=== PATIENT | female | born 1980 | race Caucasian/White ===

== ENCOUNTER 2019-12-18 08:02 | Outpatient (REF) | payer OTHER, SELFPAY ==
[2019-12-18 11:03] LABS: HIV AB/AG Nonreactive (Nonreactive); HIV Num 1 0.06 S/CO (0.00-0.99); ~HepC Num1 0.76 S/CO (0.00-0.79); ~Hepatitis C Antibody Nonreactive (Nonreactive)
[2019-12-18 11:05] LABS: Syphilis Screen Nonreactive (Nonreactive)
[2019-12-18 11:11] LABS: HBsAGNum1 0.29 S/CO (0.00-0.99); Hepatitis B Surface Antigen Negative (Negative)
[2019-12-18 11:58] LABS: CT PCR NOT DETECTED (Not Detect.); NG PCR DETECTED (Not Detect.)
[2019-12-19 12:58] LABS: BV Int Neg Control Negative (Negative); BV Int Pos Control Positive (Positive)
== END 2019-12-18 08:03 | disposition home or self-care (01) ==
LOC: HO.LAB 08:02
PROVIDERS: Visit Provider Advanced Practice Midwife
DX: Z01.411 Encounter for gynecological examination (general) (routine) with abnormal findings (principal); D25.1 Intramural leiomyoma of uterus; N89.8 Other specified noninflammatory disorders of vagina; D24.1 Benign neoplasm of right breast; Z20.2 Contact with and (suspected) exposure to infections with a predominantly sexual mode of transmission
CPT/HCPCS: 86780; 86803; 87340; 87389; 87480; 87491; 87510; 87591; 87660

== ENCOUNTER → 2019-12-21 15:22 | Outpatient (BNVA) | payer OTHER, SELFPAY | PROVIDERS: Visit Provider Advanced Practice Midwife | DX: A54.9 Gonococcal infection, unspecified (principal) | CPT/HCPCS: 99211 ==

== ENCOUNTER 2021-12-07 15:24 | Outpatient (REF) | payer OTHER, SELFPAY ==
[2021-12-07 18:03] LABS: CT PCR NOT DETECTED (Not Detect.)
[2021-12-07 18:04] LABS: NG PCR NOT DETECTED (Not Detect.)
[2021-12-08 06:55] LABS: Syphilis Screen Nonreactive (Nonreactive)
[2021-12-08 07:39] LABS: HBc Num1 0.17 S/CO (0.00-0.79); HIV AB/AG Nonreactive (Nonreactive); HIV Num 1 0.11 S/CO (0.00-0.99); Hepatitis B Core Antibody Nonreactive (Nonreactive); ~HepC Num1 0.41 S/CO (0.00-0.79); ~Hepatitis C Antibody Nonreactive (Nonreactive)
[2021-12-08 11:11] LABS: BV Int Neg Control Negative (Negative); BV Int Pos Control Positive (Positive)
[2021-12-12 20:41] LABS: HPV mRNA E6/E7 rflx Not Detected (Not Detected)
== END 2021-12-07 15:25 | disposition home or self-care (01) ==
LOC: HO.LNP 15:24
PROVIDERS: Visit Provider Advanced Practice Midwife
DX: Z01.419 Encounter for gynecological examination (general) (routine) without abnormal findings (principal); N89.8 Other specified noninflammatory disorders of vagina; Z20.2 Contact with and (suspected) exposure to infections with a predominantly sexual mode of transmission
CPT/HCPCS: 86704; 86780; 86803; 87389; 87480; 87491; 87510; 87591; 87624; 87660; 88142

== ENCOUNTER 2022-11-01 10:14 | Outpatient (REF) | payer MEDICAID, SELFPAY ==
--- NOTE | ~2022-11-01 | MM_ITS ---
EXAMINATION: MM SCREENING DIGITAL BREAST TOMOSYNTHESIS, BILATERAL CLINICAL INFORMATION: Screening. Asymptomatic. COMPARISON: Mammography: This study is compared with prior exams dating back to 2006. TECHNIQUE: Digital breast tomosynthesis is performed in both the craniocaudal and mediolateral oblique views along with computer-aided detection (CAD). Synthesized 2D images are generated from the tomosynthesis. FINDINGS: The breasts are heterogeneously dense, which may obscure small masses (ACR BI-RADS breast composition Category c). There are no significant masses, abnormal calcifications, or other abnormalities. 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 It contains a tissue marker and few, unchanged, benign calcifications.. MM/MM tomosynthesis screening BI IMPRESSION: No mammographic evidence of malignancy. ASSESSMENT: BI-RADS BI-RADS 2 - Benign Findings RECOMMENDATION: Routine annual mammography screening. 1 year F/U This examination should not preclude the clinical evaluation of a suspicious palpable abnormality. This patient's information was entered into a reminder system with a target due date for their next mammogram.
--- NOTE | ~2022-11-01 | US_ITS ---
EXAMINATION: US PELVIS CLINICAL INFORMATION: Bilateral ovarian cysts. LMP 10/19/2022. COMPARISON: Pelvic ultrasound 06/10/2017 TECHNIQUE: Ultrasound of the pelvis is performed using both transabdominal and transvaginal transducers along with Doppler. Transvaginal imaging is performed due to inadequate visualization transabdominally. FINDINGS: Uterus: The uterus is anteverted. Uterine echotexture is heterogeneous. The uterus measures 12.2 x 4.9 7.1 cm. Multilayered endometrium measuring up to 1.4 cm. Right fundal fibroid measures 2.6 x 2.60 2.0 cm. Right fundal fibroid measures 1.7 x 1.1 x 1.5 cm. Left fundal fibroid measures 2.7 x 2.7 x 3.3 cm. Lower uterine segment fibroid measures 2.0 x 1.5 x 1.6 cm. Adnexa: Both ovaries are visualized. The right ovary measures 3.6 x 2.2 x 2.5 cm for a volume of 10.8 mL. Right ovarian simple cyst measures 2.1 x 1.8 x 2.1 cm. The left ovary measures 5.7 x 3.8 x 5.3 cm for a volume of 60.0 mL. Septated left ovarian cyst measures 4.9 x 3.5 x 5.2 cm. Loculated fluid in the cul-de-sac measures 4.2 x 2.1 x 4.1 cm and is essentially unchanged. US/US pelvic and transvaginal IMPRESSION: Septated left ovarian cyst measuring 4.9 x 3.5 x 5.2 cm. Findings are overwhelmingly likely to represent a benign functional cyst. No follow-up imaging recommended. Uterine fibroids. Thickened endometrium. Advise correlation with patient's menstrual history.
== END 2022-11-01 10:15 | disposition home or self-care (01) ==
LOC: HO.MAMMO 10:14
PROVIDERS: PCP Pediatrics; Visit Provider Pediatrics
DX: Z12.31 Encounter for screening mammogram for malignant neoplasm of breast (principal); N83.201 Unspecified ovarian cyst, right side; N83.202 Unspecified ovarian cyst, left side
CPT/HCPCS: 76830; 76856; 77063; 77067

== ENCOUNTER → 2022-11-01 10:15 | Outpatient (BNV) | payer MEDICAID, SELFPAY | PROVIDERS: PCP Pediatrics; Visit Provider Radiology Diagnostic Radiology | DX: Z12.31 Encounter for screening mammogram for malignant neoplasm of breast (principal) | CPT/HCPCS: 77063; 77067 ==

== ENCOUNTER 2022-12-07 12:52 | Outpatient (REF) | payer MEDICAID, SELFPAY ==
[2022-12-08 16:34] LABS: C. trachomatis RNA TMA NOT DETECTED (NOT DETECTED); N. gonorrhoeae RNA TMA NOT DETECTED (NOT DETECTED)
== END 2022-12-07 12:53 | disposition home or self-care (01) ==
LOC: HO.CHCLNP 12:52
PROVIDERS: Visit Provider Internal Medicine
DX: R10.2 Pelvic and perineal pain (principal)
CPT/HCPCS: 36415; 87491; 87591

== ENCOUNTER → 2022-12-13 14:39 | Outpatient (BNVA) | payer OTHER, SELFPAY | PROVIDERS: Visit Provider Advanced Practice Midwife ==

== ENCOUNTER 2023-01-23 10:10 | Outpatient (AMB) | payer MEDICAID, SELFPAY ==
--- NOTE | 2023-01-23 10:16 | A.OFFVIS_ITS ---
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 She was previously seen at [facility] and was diagnosed with ovarian cyst and offered surgery at that time. She denies any pain today. She admits that she has painful menses and sometimes some jabbing pain during her cycle. She is also interested in a future . She is not taking vitamins. She reports regular monthly cycles lasting for 5-6 days heavy for 2 days. She reports a history of anemia. Records of her last CBC and TSH are not available. She reports taking some iron supplements. [facility] Medical History Breast lump Pelvic cyst History of benign breast biopsy Family History Mother Diabetes HTN (hypertension) Brain cancer Social History Alcohol intake: current Alcohol intake frequency: holidays/special occasions only Patient Tobacco Use Status: Current everyday Tobacco user Cigarettes Per Day: 10 Years Smoked: 20 Female Reproductive History Menstrual Age of Menarche: 13 Duration of menses: 6-7 days Date of last menstrual period: 01/19/23 control method: none Total pregnancies: 4 Full term: 4 Number of Living Children: 4 Physical Exam Vital Signs: Last Vital Signs BP 98/62 01/23/23 10:17 BMI result Body Mass Index 23.6 Results Reviewed Results Reviewed: [facility] [address] [place] [address] [place] [address] Ultrasound Report Signed Patient: Dolores Fung MR#: [id number] : 1980 Acct:[id number] Age/Sex: 42 / F ADM Date: 11/01/22 Loc: [facility] Attending Dr: Breanne Fermin MD Ordering Physician: Breanne Fermin MD Date of Service: 11/01/22 Procedure(s): US pelvic and transvaginal Accession Number(s): [id number] cc: Breanne Fermin MD~ EXAMINATION: US PELVIS CLINICAL INFORMATION: Bilateral ovarian cysts. LMP 10/19/2022. COMPARISON: Pelvic ultrasound 06/10/2017 TECHNIQUE: Ultrasound of the pelvis is performed using both transabdominal and transvaginal transducers along with Doppler. Transvaginal imaging is performed due to inadequate visualization transabdominally. FINDINGS: Uterus: The uterus is anteverted. Uterine echotexture is heterogeneous. The uterus measures 12.2 x 4.9 7.1 cm. Multilayered endometrium measuring up to 1.4 cm. Right fundal fibroid measures 2.6 x 2.60 2.0 cm. Right fundal fibroid measures 1.7 x 1.1 x 1.5 cm. Left fundal fibroid measures 2.7 x 2.7 x 3.3 cm. Lower uterine segment fibroid measures 2.0 x 1.5 x 1.6 cm. Adnexa: Both ovaries are visualized. The right ovary measures 3.6 x 2.2 x 2.5 cm for a volume of 10.8 mL. Right ovarian simple cyst measures 2.1 x 1.8 x 2.1 cm. The left ovary measures 5.7 x 3.8 x 5.3 cm for a volume of 60.0 mL. Septated left ovarian cyst measures 4.9 x 3.5 x 5.2 cm. Loculated fluid in the cul-de-sac measures 4.2 x 2.1 x 4.1 cm and is essentially unchanged. US/US pelvic and transvaginal IMPRESSION: Septated left ovarian cyst measuring 4.9 x 3.5 x 5.2 cm. Findings are overwhelmingly likely to represent a benign functional cyst. No follow-up imaging recommended. Uterine fibroids. Thickened endometrium. Advise correlation with patient's menstrual history. Assessment & Plan Assessment & Plan (1) Fibroid: Code(s): D21.9 - Benign neoplasm of connective and other soft tissue, unspecified (2) Ovarian cyst, bilateral: Code(s): N83.201 - Unspecified ovarian cyst, right side; N83.202 - Unspecified ovarian cyst, left side Plan: Consult regarding bilateral ovarian cyst. Most are benign in occur throughout the reproductive years and mostly resolved on their own. Discussed medical management with it in including contraception with limitations for smoking would be progesterone only products at this time, she declines control. Left cyst larger wrote reviewed warnings including: torsion, ovarian cyst rupture. Cyst appears simple no need for follow-up unless she is becoming more uncomfortable if there is any significant pain she should report to the emergency room as mentioned for those concerns. Recheck the cyst at the time of her exam for fibroids in 6 months, or sooner if there is any changes with her including pain. (3) Smoker: Code(s): F17.200 - Nicotine dependence, unspecified, uncomplicated Plan: Strongly recommended to stop smoking prior to . To start a vitamin. Release records for recent blood work. May need to reduce iron supplements to daily with additional vitamin depending on level of anemia. Offered her information for other physician general practice services within her community since she travels out of her area a bit to come here she is happy to continue care here. Monitor for periods if missed menses do a home test the test is positive to follow-up here for care. Release records for lab work, and all note from [facility] and PCP. All of her questions and concerns were addressed to the best of my ability and shared decision making. She is agreeable to the plan of care. Plan Counseled re: Leiomyoma: common pelvic neoplasm. Differential diagnosis-may include leiomyosarcoma which is a rare uterine sarcoma 3-7/100,000, difficult to distinguish from fibroids on ultrasound from uterine sarcoma's. Unlikely any single test will have a highly positive predictive value. Hysterectomy is not recommended for sole purpose of excluding malignant neoplasm. Report any AUB. Pelvic pressure, bloating, or pain. Expectant management follow up in 6 months, then yearly for stability. Orders: Orders US pelvic and transvaginal 6 Months D21.9 - Benign neoplasm of connective and other soft tissue, unspecified Medications: New PNV,calcium 62-plzo-ilcvi acid 27 mg iron- 1 mg ( Vitamins Plus Low Iron) 1 tab PO DAILY 90 tabs 4RF Coding Level of Care Code Est Pt Level 3 (35124) Diagnoses Fibroid D21.9 Ovarian cyst, bilateral N83.201; N83.202 Smoker F17.200
[2023-01-23 10:17] VITALS: BP 98/62; BMI 23.6
== END 2023-01-23 10:59 | disposition home or self-care (01) ==
LOC: HO.HWS 10:10
PROVIDERS: PCP Pediatrics; Visit Provider Advanced Practice Midwife
DX: D21.9 Benign neoplasm of connective and other soft tissue, unspecified (principal); N83.201 Unspecified ovarian cyst, right side; N83.202 Unspecified ovarian cyst, left side; F17.200 Nicotine dependence, unspecified, uncomplicated
CPT/HCPCS: 99213

== ENCOUNTER → 2023-01-23 10:10 | Outpatient (BNVA) | payer MEDICAID, SELFPAY | PROVIDERS: PCP Pediatrics; Visit Provider Advanced Practice Midwife | DX: D21.9 Benign neoplasm of connective and other soft tissue, unspecified (principal); N83.201 Unspecified ovarian cyst, right side; N83.202 Unspecified ovarian cyst, left side; F17.210 Nicotine dependence, cigarettes, uncomplicated; Z71.6 Tobacco abuse counseling | CPT/HCPCS: 99212 ==

== ENCOUNTER 2023-08-12 15:30 | Outpatient (REF) | payer MEDICAID, SELFPAY ==
--- NOTE | ~2023-08-12 | US_ITS ---
EXAMINATION: US PELVIS CLINICAL INFORMATION: Leiomyoma Benign neoplasm of connective and other soft tissue, unspecified LMP 08/03/2023 COMPARISON: Ultrasound 11/01/2022, MRI pelvis 06/21/2017 TECHNIQUE: Ultrasound of the pelvis is performed using both transabdominal and transvaginal transducers along with Doppler. Transvaginal imaging is performed due to inadequate visualization transabdominally. FINDINGS: Uterus: The uterus is anteverted and measures 10.2 x 6.1 x 8.0 cm. There are multiple uterine fibroids includin.4 x 1.8 x 2.5 cm left lower uterine segment, previously measured 2.0 x 1.5 x 1.6 cm 3.0 x 2.5 x 2.6 cm right lower uterine segments previously measured 2.6 x 2.6 x 2.0 cm. 3.5 x 3.4 x 3.7 cm partly exophytic fibroid previously measured 2.7 x 2.8 x 3.3 cm. New 3.2 x 2.9 x 2.8 cm fundal fibroid New 3.1 x 2.5 x 2.8 cm fundal fibroid. Other smaller fibroids are seen. The endometrial thickness is 1.5 cm. Adnexa: Both ovaries are visualized. There is normal color flow to the adnexa. There is no ovarian torsion. Right ovary measures 3.1 x 2.4 x 1.6 cm. Volume 5.9 mL. Left ovary measures 1.9 x 1.1 x 1.3 cm. Volume 14 mL. 11.7 x 2.0 x 4.1 cm cystic structure is again seen in the cul-de-sac. 11.7 x 2.0 x 4.1 cm complex, tubular, cystic area in the left adnexa may represent a complex hydrosalpinx. US/US pelvic and transvaginal IMPRESSION: 1. Multiple uterine fibroids. 2. Normal ovaries. 3. 11.7 cm cystic structure in the cul-de-sac is again seen. 4. 11.7 cm complex, tubular, cystic area in the left adnexa may represent a complex hydrosalpinx. MRI scan could be obtained for further evaluation.
== END 2023-08-12 15:31 | disposition home or self-care (01) ==
LOC: HO.US 15:30
PROVIDERS: PCP Pediatrics; Visit Provider Advanced Practice Midwife
DX: D21.9 Benign neoplasm of connective and other soft tissue, unspecified (principal)
CPT/HCPCS: 76830; 76856

== ENCOUNTER 2023-08-29 14:57 | Outpatient (REF) | payer MEDICAID, SELFPAY ==
[2023-08-29 17:36] LABS: MANUAL DIFF FLAG NO
[2023-08-29 17:49] LABS: Basophils Absolute Auto 0.1 X10*3/uL (0.0-0.2); Basophils Percent Auto 1.2 % (0-2); Eosinophils Absolute Auto 0.4 X10*3/uL (0.0-0.4); Eosinophils Percent Auto 4.4 % (0-4); Hematocrit 36.3 % (37.0-47.0); Hemoglobin 11.2 g/dl (12.0-16.0); Imm Gran Abs Auto 0.02 X10*3/uL (0.00-0.03); Imm Gran Pct Auto 0.2 % (0.0-0.4); Lymphocytes Absolute Auto 2.9 X10*3/uL (1.2-4.9); Lymphocytes Percent Auto 35.7 % (20-40); Mean Corpuscular HGB Conc 30.9 g/dl (31.0-35.0); Mean Corpuscular Hemoglobin 24.8 pg (27.0-33.0); Mean Corpuscular Volume 80.3 fL (80.0-98.0); Mean Platelet Volume 10.2 fL (9.4-12.3); Monocytes Absolute Auto 0.8 X10*3/uL (0.1-1.2); Monocytes Percent Auto 10.1 % (2-11); Neutrophils Absolute Auto 3.9 x10*3/uL (2.0-8.3); Neutrophils Percent Auto 48.4 % (45-73); Platelet Count 346 X10*3/uL (160-400); Red Blood Count 4.52 X10*6/uL (4.20-5.50); Red Cell Distribution Width 16.6 % (11.0-16.0)
[2023-08-29 18:08] LABS: TSH reflex Free T4 1.09 uIU/mL (0.32-4.0); Vitamin D 25-OH Total 34.2 ng/mL (>30)
[2023-08-30 03:29] LABS: CT PCR NOT DETECTED (Not Detect.); NG PCR NOT DETECTED (Not Detect.)
[2023-08-30 08:10] LABS: HBS Num1 176.84 mIU/mL (0-7.99); HIV AB/AG Nonreactive (Nonreactive); HIV Num 1 0.05 S/CO (0.00-0.99); Hepatitis B Core Antibody Nonreactive (Nonreactive); ~HepC Num1 0.56 S/CO (0.00-0.79); ~Hepatitis B Surface Antibody REACTIVE (Nonreactive); ~Hepatitis C Antibody Nonreactive (Nonreactive)
[2023-08-30 10:47] LABS: Bacterial Vaginosis PCR POSITIVE (Negative); Candida Group PCR NOT DETECTED (Not Detect); Candida glab krusei PCR NOT DETECTED (Not Detect); Trichomonas vaginalis PCR NOT DETECTED (Not Detect)
== END 2023-08-29 14:58 | disposition home or self-care (01) ==
LOC: HO.CHCLDS 14:57
PROVIDERS: Visit Provider Pediatrics
DX: Z00.00 Encounter for general adult medical examination without abnormal findings (principal); Z71.3 Dietary counseling and surveillance; Z71.82 Exercise counseling; E11.9 Type 2 diabetes mellitus without complications; N83.201 Unspecified ovarian cyst, right side; N83.202 Unspecified ovarian cyst, left side; Z86.2 Personal history of diseases of the blood and blood-forming organs and certain disorders involving the immune mechanism
CPT/HCPCS: 0352U; 36415; 82306; 84443; 85025; 86704; 86706; 86803; 87389; 87491; 87591

== ENCOUNTER 2024-01-24 14:36 | Outpatient (REF) | payer MEDICAID, SELFPAY | END 2024-01-24 14:37 | disposition home or self-care (01) | LOC: HO.CHCLNP 14:36 | PROVIDERS: Visit Provider Internal Medicine | DX: R10.9 Unspecified abdominal pain (principal) | CPT/HCPCS: 0352U; 87086; 87491; 87591 ==

== ENCOUNTER 2024-01-24 16:28 | Outpatient (REF) | payer MEDICAID, SELFPAY ==
[2024-01-25 13:06] LABS: Bacterial Vaginosis PCR POSITIVE (Negative); Candida Group PCR DETECTED (Not Detect); Candida glab krusei PCR DETECTED (Not Detect); Trichomonas vaginalis PCR NOT DETECTED (Not Detect)
[2024-01-25 13:40] LABS: CT PCR NOT DETECTED (Not Detect.); NG PCR NOT DETECTED (Not Detect.)
== END 2024-01-24 16:29 | disposition home or self-care (01) ==
LOC: HO.CHCLNP 16:28
PROVIDERS: Visit Provider Internal Medicine
DX: N76.0 Acute vaginitis (principal)
CPT/HCPCS: 0352U; 87491; 87591

== ENCOUNTER 2024-06-17 11:07 | Outpatient (REF) | payer MEDICAID, SELFPAY ==
--- OUTSIDE RECORDS SUMMARY | 2024-06-17 15:47 | XMS_ITS | Encounter Summary ---
Author Organization [employer] Address [address] [facility] 7 [place] [address] Care Team Providers Care Local Company Flatbed Truck Driver Name Role Phone Breanne Fermin MD Primary Care Provider Reason for Visit * Reason Onset Date Comments Referral 01/23/2023 Encounter Details Date Type Department Care Team ([facility] Contact Info) Description 01/23/2023 Telephone [facility] MED & PEDS [address] [place] [address] Breanne Fermin MD [address] [place] [address] Referral Social History Tobacco Use Types Packs/Day [...] 03/20/2023 3:52 PM EST Referral sent to [address] [place] [address] per pt request * Telephone Encounter - Farrah Gomez - 01/23/2023 11:27 AM EST Tc from pt requesting a different location for obstetrics/Gynecology referral. 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 documented in this encounter Plan of Treatment Upcoming Encounters Date Type Department Care Team ([facility] Contact Info) Description 06/30/2024 11:15 AM EDT Office Visit [facility] MED & PEDS [address] [place] [address] Breanne Fermin MD [address] [place] [address] documented as of this encounter Visit Diagnoses Not on filedocumented in this encounter Additional Health Concerns Assessment Noted Time PHQ-9 Depression Total Score: 0 04/19/19 10:37 AM EST documented as of this encounter Care Teams Local Company Flatbed Truck Driver Relationship Specialty Start Date End Date Breanne Fermin MD [address] [place] [address] PCP - General Internal Medicine 05/02/22 documented as of this encounter
--- OUTSIDE RECORDS SUMMARY | 2024-06-17 15:47 | XMS_ITS | Clinical Summary ---
Author Organization [employer] Address [address] [place] [address] 7t [place] [address] Care Team Providers Care Ent Consultant Name Role Phone Breanne Fermin MD Primary Care Provider [phone] Allergies No known active allergies Medications Blood [...] Department Care Team Description 06/16/2024 Orders Only [facility] MED & PEDS [address] [place], [place] [phone] ProviderYvette MD 06/16/2024 Telephone [facility] MEDICINE [address] [place] [address] Breanne Fermin MD Appointment Request 05/01/2024 Population Health Risk Score [facility] () Department [address] [place] [phone] Provider, Population Health Generic 04/27/2024 Telephone [facility] MED & PEDS [address] [place] [address] Breanne Fermin MD recall 04/13/2024 1:00 PM EST Office Visit [facility] MED & PEDS [address] [place] [address] Verna Cano MD Right hand weakness (Primary Dx); Multinodular thyroid 04/13/2024 Travel 04/13/2024 Telephone [facility] MEDICINE [address] [place], [place] [phone] Breanne Fermin MD Nurse Triage 04/10/2024 Patient Outreach [facility] MED & PEDS [address] [place], [place] [phone] Breanne Fermin MD Care Coordination (Outreach) 03/31/2024 Refill [facility] MED[facility]INE [address] [place] [address] Breanne Fermin MD Type 2 diabetes mellitus without complication, without long-term current use of insulin ([facility]); Thrombus; H/O iron deficiency anemia from Last [...] Description 06/30/2024 11:15 AM EDT Office Visit [facility] CH[facility] MED & PEDS [address] [place] [address] Breanne Fermin MD 505 [place] [address] Health Maintenance Due Date Last Done Comments [...] ORDERABLES Final Re sult Performing Organization Address [facility] Co de Phone Number [facility] [address] [place] [phone] * HIV-1/2 Antigen and Antibodies, Fourth Generation, with Reflexes (08/29/2023 3:00 PM EDT) [facility] HIV AB/AG Nonreactive Nonreactive [facility] Comment:HIV-1 p24 Ag and/or HIV-1/HIV-2 Ab not detected.A test result that is nonreactive does not exclude thepossibility of exposure to or infection with HIV-1 and/orHIV-2. Nonreactive results in this assay for individualswith prior exposure to HIV-1 and/or HIV-2 may be due toantigen and antibody levels that are below the limit ofdetection of this assay.The [employer] HIV Ag/Ab Combo assay result andsupplemental assay results should be interpreted inconjunction with the patient's clinical presentation,history and other laboratory results. If the results areinconsistent with clinical evidence, additional testing issuggested to confirm the result. Blood Venous blood specimen / Unknown 08/29/2023 3:00 PM EDT 08/29/2023 5:32 PM EDT Breanne Fermin MD LAB BLOOD ORDERABLES Final Re sult Performing Organization Address [facility]/ZIP Co de Phone Number [facility] [address] [place] [phone] * (ABNORMAL) POCT HGB A1C (08/29/2023 2:42 PM EDT) [facility] Hemoglobin A1C 6.8(A) 4.0 - 6.0 % QC Media Lot # [id number] Lot# Expiration Date Blood 08/29/2023 2:42 PM EDT us Breanne Fermin MD POINT OF CARE TEST ENTER/EDIT ORDERABLES Final Result * BI Mammogram Screening Tomosynthesis Bilateral (11/01/2022 10:40 AM EDT) Anatomical Region Laterality Modality Breast Bilateral Mammography 11/01/2022 10:4 0 AM EDT Narrative 11/18/2022 8:00 AM EDT ? [facility] ? [address] ?[place] [address] ? Mammography Report ? Signed ? Patient: Kenton,Dolores L ?MR#: [id number] ?? [id number] ? : 1980 ?Acct:[id number] ? Age/Sex: 42 / F ?ADM Date: 11/01/22 ? Loc: HO.MAMMO ? Attending Dr: Breanne Fermin MD ? Ordering Physician: Kamille Watkins CNFabrice ?Results: 2Beni ?? gn Findings ? Date of Service: 11/01/22 ?Follow Up: 1 Year From Orig ?? inal Mammogram ? Procedure(s): MM tomosynthesis screening BI ?? Accession Number(s): [id number] ? cc: Breanne Fermin MD; Kamille Watkins [...] 0756 ? DD/ 1040 ? TD/TT: ? Photovoltaic Testing Technician: ? Procedure Note Lolita Palacios - 11/18/2022 [facility] [address] [place] [address] Dr. [place], [place] [address] Mammography Report Signed Patient: Dolores Fung R#: [id number] : 1980Acct:[id number] Age/Sex: 42 / FADM Date: 11/01/22 Loc: HO.MAMMO Attending Dr: Breanne Fermin MD Ordering Physician: Kamille Watkins CNMResults: 2Beni gn Findings Date of Service: 11/01/22Follow Up: 1 Year From Orig ina Mammogram Procedure(s): MM tomosynthesis screening BI Accession Number(s): [id number] cc: Breanne Fermin MD; Kamille Watkins CNM [...] in OV> 11/18/22 0756 DD/ 1040 TD/TT: Photovoltaic Testing Technician: [facility] External Provider IMG BI PROCEDURES Final Result * (ABNORMAL) Lipid Panel, Standard (04/18/2022 10:48 AM EST) Cholesterol, Total 155 <200 mg/dL [facility] HDL Cholesterol 29(L) > OR = 50 mg/dL [facility] Triglycerides 281(H) <150 mg/dL [facility] Comment: If a non-fasting specimen was collected, consider repeat triglyceride testing on a fasting specimen if clinically indicated. Devin et al. J. of Clin. Lipidol. 2015;9:129-169. LDL Cholesterol 89 mg/dL (calc) [facility] Comment: Reference range: <100 Desirable range <100 mg/dL for primary prevention; ?? <70 mg/dL for patients with CHD or diabetic patients with > or = 2 CHD risk factors. LDL-C is now calculated using the Estiven calculation, which is a validated novel method providing better accuracy than the Friedewald equation in the estimation of LDL-C. Bright SS et al. CATRINA. 2013;310(19): 7968-3570 (http://education.VideoCare/faq/PZV750) Chol/HDLC Ratio 5.3(H) <5.0 (calc) [facility] Non-HDL Cholesterol 126 <130 mg/dL (calc) [facility] Comment: For patients with diabetes plus 1 major ASCVD risk factor, treating to a non-HDL-C goal of <100 mg/dL (LDL-C of <70 mg/dL) is considered a therapeutic option. Blood Venous blood specimen / Unknown 04/18/2022 10:48 AM EST 04/18/2022 10:49 AM EST Narrative [facility] - 04/19/2022 7:54 AM EST FASTING:YES FASTING: YES Breanne Fermin MD LAB BLOOD ORDERABLES Final Re sult [facility] [address] [facility], [place] [address] [facility] [address] [facility], ([address]) [place] [address] * LIQUID-BASED PAP TEST (11/27/2021 12:00 AM EDT) Swab Historical Provider LAB CYTOLOGY ORDERABLES F inal Result from Last 3 Months or Most Recently Relevant to Health Maintenance Insurance C3 Care Teams Ent Consultant Relationship Specialty Start Date End Date Breanne Fermin MD [address] [place] [phone] PCP - General Internal Medicine 05/02/22
--- OUTSIDE RECORDS SUMMARY | 2024-06-17 15:47 | XMS_ITS | Encounter Summary ---
Author Organization [employer] Address [address] [facility] 7 [place] [address] Care Team Providers Care Us Marketing Director Name Role Phone Breanne Fermin MD Primary Care Provider [phone] Reason for Visit * Reason Onset Date Comments Appointment Request 06/16/2024 Encounter Details Date Type Department Care Team ([facility] Contact Info) Description 06/16/2024 Telephone [facility] MEDICINE [address] [place] [address] Breanne Fermin MD [address] [place] [phone] Appointment Request Social History Tobacco Use Types [...] that its the same. Contact pt at [phone] documented in this encounter Plan of Treatment Upcoming Encounters Date Type Department Care Team (Late st Contact Info) Description 06/30/2024 11:15 AM EDT Office Visit [facility] MED & PEDS [address] [place] [address] Breanne Fermin MD [address] [place] [address] documented as of this encounter Visit Diagnoses Not on filedocumented in this encounter Additional Health Concerns Assessment Noted Time PHQ-9 Depression Total Score: 0 08/29/19 24 2:28 PM EDT documented as of this encounter Care Teams Us Marketing Director Relationship Specialty Start Date End Date Breanne Fermin MD [address] [place] [address] PCP - General Internal Medicine 05/02/22 documented as of this encounter
--- OUTSIDE RECORDS SUMMARY | 2024-06-17 15:47 | XMS_ITS | Encounter Summary ---
Author Organization [employer] Address [address] [facility] 7t [place] [address] Care Team Providers Care Head Of Acquisitions Name Role Phone Breanne Fermin MD Primary Care Provider [phone] Encounter Details Date Type Department Care Team ([facility] Contact Info) Description 04/19/2022 Abstract [facility] CH[facility] MED & PEDS [address] [place], [place] [phone] Ana Ashford MD [address] [place] [address] Social History Tobacco Use Types Packs/Day Years [...] Description 06/30/2024 11:15 AM EDT Office Visit [facility] MED & PEDS [address] [place] [address] Breanne Fermin MD [address] [place] [address] documented as of this encounter Visit Diagnoses Not on filedocumented in this encounter Additional Health Concerns Assessment Noted Time PHQ-9 Depression Total Score: 0 04/19/19 10:37 AM EST documented as of this encounter Care Teams Head Of Acquisitions Relationship Specialty Start Date End Date Breanne Fermin MD [address] [place] [address] PCP - General Internal Medicine 05/02/22 documented as of this encounter
--- OUTSIDE RECORDS SUMMARY | 2024-06-17 15:47 | XMS_ITS | Encounter Summary ---
Author Organization [employer] Address [address] [facility] [address] 7t [place] [address] Care Team Providers Care Nematologist Name Role Phone Breanne Fermin MD Primary Care Provider [phone] Encounter Details Date Type Department Care Team ([facility] st Contact Info) Description 06/16/2024 Orders Only [facility] MED & PEDS [address] [place] [address] ProviderYvette MD Social History Tobacco Use Types [...] Upcoming Encounters Date Type Department Care Team ([facility] st Contact Info) Description 06/30/2024 11:15 AM EDT Office Visit [facility] MED & PEDS [address] [place], [place] [phone] Breanne Fermin MD 505 [place] [address] documented as of this encounter Procedures Procedure [...] documented as of this encounter Care Teams Nematologist Relationship Specialty Start Date End Date Breanne Femrin MD [address] [place] [address] PCP - General Internal Medicine 05/02/22 documented as of this encounter
--- OUTSIDE RECORDS SUMMARY | 2024-06-17 15:47 | XMS_ITS | Clinical Summary ---
Author Organization [facility] Address [address] [place] [address] Phone Care Team Providers Care Cnc Machinist Name Role Phone Breanne Fermin MD Primary Care Provider [phone] Allergies No known active allergies Encounters Date Type Department Care Team Description 04/09/2024 10:01 AM EST - 04/09/2024 1:00 PM EST Emergency [facility] Emergency [address] [place] [address] Castillo Chan, Arm weakness (Primary [...] GEMUSE QTc 475 ms GEMUSE P Wave [place] 24 degrees GEMUSE R [place] 15 degrees GEMUSE T [place] 30 degrees GEMUSE ECG Interpretation Normal sinus [...] the office of CASTILLO CHAN in the [employer] Actionable Findings ??system on 04/09/2024 11:57 AM, Message ID [id number]. -------- FINAL REPORT -------- Dictated By: David Redman Dictated Date: 04/09/2024 11:56 ET Assigned Physician: David Redman Reviewed and Electronically Signed By: David Redman Signed Date: 04/09/2024 11:57 ET Workstation ID: [id number] Transcribed By: Self Edit Transcribed Date: 04/09/2024 [...] for the office ofCASTILLO CHAN in the [employer] system on04/09/2024 11:57 AM, Message ID [id number]. -------- FINAL REPORT -------- Dictated By: David Redman Dictated Date: 04/09/2024 11:56 ET Assigned Physician: David Redman Reviewed and Electronically Signed By: David Redman Signed Date: 04/09/2024 11:57 ET Workstation ID: [id number] Transcribed By: Self Edit Transcribed Date: 04/09/2024 [...] Signed Date: 04/09/2024 11:56 ET Workstation ID: [id number] Transcribed By: Self Edit Transcribed Date: 04/09/2024 11:51 ET Narrative 04/09/2024 11:56 AM EST PROCEDURE: CT angiogram of the neck and [place] and delayed postcontrast CT images of the brain. HISTORY: Neuro deficit, acute, stroke suspected. COMPARISON: None. TECHNIQUE: CT angiogram of the neck and [place] with multiplanar reformats. ??Delayed postcontrast [...] above the PICA. The basilar artery and extra gang supervisor are widely patent. ??The anterior and middle [...] PROCEDURE: CT angiogram of the neck and [place] and delayedpostcontrast CT images of the brain. HISTORY: Neuro deficit, acute, stroke suspected. COMPARISON: None. TECHNIQUE: CT angiogram of the neck and [place] with multiplanarreformats. Delayed postcontrast CT [...] above the PICA. The basilar artery and extra gang supervisor are widely patent. The anterior and middlecerebral [...] Signed Date: 04/09/2024 11:56 ET Workstation ID: [id number] Transcribed By: Self Edit Transcribed Date: 04/09/2024 11:51 ET Castillo Chan DO IMG CT PROCEDURES Final Result * (ABNORMAL) CBC auto differential (04/09/2024 10:33 AM EST) WBC 8.2 4.8 - 10.8 K/[facility] LAB HEMETOLOGY METHOD 04/09/2024 10:53 AM EST [facility] RBC 4.40 3.80 - 4.80 M/[facility] LAB HEMETOLOGY METHOD 04/09/2024 10:53 AM [facility] Hemoglobin 10.2(L) 11.5 - 16.0 g/dL LAB HEMETOLOGY METHOD 04/09/2024 10:53 AM [facility] Hematocrit 34.5(L) 35.0 - 47.0 % LAB HEMETOLOGY METHOD 04/09/2024 10:53 AM [facility] MCV 77.9(L) 79.0 - 98.0 FL LAB HEMETOLOGY METHOD 04/09/2024 10:53 AM [facility] MCH 23.0(L) 27.0 - 32.0 pcg LAB HEMETOLOGY METHOD 04/09/2024 10:53 AM [facility] MCHC 29.6(L) 32.0 - 37.0 g/dL LAB HEMETOLOGY METHOD 04/09/2024 10:53 AM [facility] RDW 18.6(H) 11.0 - 15.0 % LAB HEMETOLOGY METHOD 04/09/2024 10:53 AM [facility] Platelets 539(H) 130 - 400 K/mcL LAB HEMETOLOGY METHOD 04/09/2024 10:53 AM [facility] MPV 9.2 7.0 - 11.0 FL LAB HEMETOLOGY METHOD 04/09/2024 10:53 AM [facility] NRBC 0.0 <1.0 % LAB HEMETOLOGY METHOD 04/09/2024 10:53 AM [facility] NRBC Absolute 0.00 <0.10 K/mcL LAB HEMETOLOGY METHOD 04/09/2024 10:53 AM [facility] Neutrophils Relative 56.3 % LAB HEMETOLOGY METHOD 04/09/2024 10:53 AM [facility] Lymphocytes Relative 34.7 % LAB HEMETOLOGY METHOD 04/09/2024 10:53 AM [facility] Monocytes Relative 6.3 % LAB HEMETOLOGY METHOD 04/09/2024 10:53 AM [facility] Eosinophils Relative 1.3 % LAB HEMETOLOGY METHOD 04/09/2024 10:53 AM [facility] Basophils Relative 1.2 % LAB HEMETOLOGY METHOD 04/09/2024 10:53 AM [facility] Immature Granulocytes Relative 0.2 % LAB HEMETOLOGY METHOD 04/09/2024 10:53 AM [facility] Neutrophils Absolute 4.61 1.50 - 7.00 K/mcL LAB HEMETOLOGY METHOD 04/09/2024 10:53 AM [facility] Lymphocytes Absolute 2.85 1.00 - 5.00 K/mcL LAB HEMETOLOGY METHOD 04/09/2024 10:53 AM [facility] Monocytes Absolute 0.52 0.20 - 1.00 K/mcL LAB HEMETOLOGY METHOD 04/09/2024 10:53 AM [facility] Eosinophils Absolute 0.11 0.00 - 0.50 K/mcL LAB HEMETOLOGY METHOD 04/09/2024 10:53 AM [facility] Basophils Absolute 0.10 0.00 - 0.20 K/mcL LAB HEMETOLOGY METHOD 04/09/2024 10:53 AM [facility] Immature Granulocytes Absolute 0.02 0.00 - 0.03 K/mcL LAB HEMETOLOGY METHOD 04/09/2024 10:53 AM [facility] Blood Venous blood specimen / Unknown Venipuncture / Unknown 04/09/2024 10:33 AM EST 04/09/2024 10:43 AM EST us Castillo Chan DO LAB BLOOD ORDERABLES Final Res ult [facility] [address] [place] [address], [place] [phone] * Activated partial thromboplastin time (04/09/2024 10:33 AM EST) [facility] aPTT 30.7 24.1 - 39.3 sec LAB COAGULATION METHOD 04/09/2024 11:03 AM EST [facility] Blood Venous blood specimen / Unknown Venipuncture / Unknown 04/09/2024 10:33 AM EST 04/09/2024 10:43 AM EST us Castillo Chan DO LAB BLOOD ORDERABLES Final Res ult [facility] [address] [place] [address], [place] [phone] * Prothrombin time with INR (04/09/2024 10:33 AM EST) [facility] Protime 11.0 10.6 - 13.9 sec LAB COAGULATION METHOD 04/09/2024 11:03 AM EST [facility] INR 0.9 LAB COAGULATION METHOD 04/09/2024 11:03 AM EST [facility] Blood Venous blood specimen / Unknown Venipuncture / Unknown 04/09/2024 10:33 AM EST 04/09/2024 10:43 AM EST Castillo Chan DO LAB BLOOD ORDERABLES Final Res ult [facility] [address] [place] [address], [place] [phone] * (ABNORMAL) Basic metabolic panel (04/09/2024 10:33 AM EST) [facility] Sodium 139 133 - 145 mmol/L LAB CHEMISTRY METHOD 04/09/2024 11:36 AM EST [facility] Potassium 3.7 3.5 - 5.5 mmol/L LAB CHEMISTRY METHOD 04/09/2024 11:36 AM [facility] Chloride 107 96 - 110 mmol/L LAB CHEMISTRY METHOD 04/09/2024 11:36 AM [facility] CO2 25 21 - 32 mmol/L LAB CHEMISTRY METHOD 04/09/2024 11:36 AM [facility] Anion Gap 7 3 - 11 LAB CHEMISTRY METHOD 04/09/2024 11:36 AM [facility] Glucose 102(H) 70 - 100 mg/dL LAB CHEMISTRY METHOD 04/09/2024 11:36 AM [facility] BUN 5 5 - 25 mg/dL LAB CHEMISTRY METHOD 04/09/2024 11:36 AM [facility] Creatinine 0.52 0.50 - 1.10 mg/dL LAB CHEMISTRY METHOD 04/09/2024 11:36 AM [facility] eGFR 118 >=60 mL/min/1. 73m2 LAB CHEMISTRY METHOD 04/09/2024 11:36 AM [facility] Comment:Calculation based on the??Chronic Kidney Disease Epidemiology Collaboration (CKD-EPI) equation refit??without adjustment for race. BUN/Creatinine Ratio 9.6 LAB CHEMISTRY METHOD 04/09/2024 11:36 AM [facility] Calcium 9.6 8.5 - 10.5 mg/dL LAB CHEMISTRY METHOD 04/09/2024 11:36 AM [facility] Blood Venous blood specimen / Unknown Venipuncture / Unknown 04/09/2024 10:33 AM EST 04/09/2024 10:43 AM EST us Castillo Chan DO LAB BLOOD ORDERABLES Final Res ult [facility] [address] [place] [address], [place] [phone] from Last 3 Months Insurance Care Teams Cnc Machinist Relationship Specialty Start Date End Date Breanne Fermin MD [address] [place] [address] PCP - General Internal Medicine 06/16/24
--- OUTSIDE RECORDS SUMMARY | 2024-06-17 15:47 | XMS_ITS | Encounter Summary ---
Author Organization [employer] Address [address] [facility] 7t [place] [address] Care Team Providers Care Barrel Ribs Solderer Name Role Phone Breanne Fermin MD Primary Care Provider Encounter Details Date Type Department Care Team ([facility] Contact Info) Description 01/26/2024 Orders Only [facility] MED & PEDS [address] [place], [place] [phone] Bill Albarran MD [address] [place] [address] Bacterial vaginosis (Primary Dx) Social History Tobacco [...] [facility]EDS [address] [place] [address] Breanne Fermin MD [address] [place] [address] documented as of this encounter Visit Diagnoses Diagnosis Bacterial vaginosis- Primary Unspecified vaginitis and vulvovaginitis documented in this encounter Additional Health Concerns Assessment Noted Time PHQ-9 Depression Total Score: 0 08/29/19 24 2:28 PM EDT documented as of this encounter Care Teams Barrel Ribs Solderer Relationship Specialty Start Date End Date Breanne Fermin MD [address] [place] [address] PCP - General Internal Medicine 05/02/22 documented as of this encounter
[2024-06-17 20:07] LABS: Bacterial Vaginosis PCR POSITIVE (Negative); Candida Group PCR DETECTED (Not Detect); Candida glab krusei PCR NOT DETECTED (Not Detect); Trichomonas vaginalis PCR NOT DETECTED (Not Detect)
[2024-06-17 20:47] LABS: CT PCR DETECTED (Not Detect.); NG PCR NOT DETECTED (Not Detect.)
== END 2024-06-17 11:08 | disposition home or self-care (01) ==
LOC: HO.LNP 11:07
PROVIDERS: PCP Pediatrics; Visit Provider Advanced Practice Midwife
DX: B37.31 Acute candidiasis of vulva and vagina (principal); E11.9 Type 2 diabetes mellitus without complications; Z20.2 Contact with and (suspected) exposure to infections with a predominantly sexual mode of transmission; Z79.84 Long term (current) use of oral hypoglycemic drugs
CPT/HCPCS: 81515; 87491; 87591; 99212

== ENCOUNTER 2024-06-17 11:07 | Outpatient (AMB) | payer MEDICAID, SELFPAY ==
--- NOTE | 2024-06-17 11:09 | A.OFFVIS_ITS ---
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 She says she is diabetic for about the last year she says her blood sugars are under good control she takes metformin 1000 mg and she sees a doctor named Dr. Mcleod in [place]. She says she has an appointment with her in 8 days, She said she thinks she has some other appointment follow-up on something else to somebody but she does not who or where. [facility] Medical History Breast lump Pelvic cyst History of benign breast biopsy Family History Mother Diabetes HTN (hypertension) Brain cancer Social History Alcohol intake: current Alcohol intake frequency: holidays/special occasions only Patient Tobacco Use Status: Current everyday Tobacco user Cigarettes Per Day: 10 Years Smoked: 20 Female Reproductive History Menstrual Age of Menarche: 13 Duration of menses: 6-7 days Date of last menstrual period: 06/04/24 control method: none Total pregnancies: 4 Full term: 4 Date of last pap smear: 12/07/21 (negative ) Date of Mammogram: 11/01/22 (bi rad 2) Physical Exam Vital Signs: Last Vital Signs BP 110/70 06/17/24 11:14 BMI result Body Mass Index 23.6 Other: Labia minora are slightly dry/pink consistent with very mild yeast. External Female Exam: normal external appearance and normal appearance of the urethra Speculum Exam - Vagina: normal appearance of the vagina and normal vaginal discharge Speculum Exam - Cervix: normal appearance of the cervix and Cervical os closed Assessment & Plan Assessment & Plan (1) Potential exposure to STD: Code(s): Z20.2 - Contact with and (suspected) exposure to infections with a predominantly sexual mode of transmission Category: Medical (2) Diabetes: Comment: Since she has been diagnosed for about a year and is well-controlled on metformin 1000 mg per her PCC in [place]. Says her blood sugars have not been higher than 120 postprandial. Code(s): E11.9 - Type 2 diabetes mellitus without complications Category: Medical (3) Yeast infection of the vagina: Comment: Mild vaginal burning times 3-4 days. Testing done appearance consistent with very mild yeast which would be consistent with her diabetes, we will treat with her choice - fluconazole. Code(s): B37.31 - Acute candidiasis of vulva and vagina Category: Medical Plan Testing done for gonorrhea chlamydia trichomoniasis bacterial vaginosis and Kristel. Patient has appearance a lines with extremely mild yeast which could be consistent with her well-controlled diabetes per her report. Congratulated on her self-care and keeping an eye on her diabetes she has an appointment in 8 days with a primary care provider to review things as well. I am sending a prescription for fluconazole 150 mg that she can take 1 tablet now and repeat the 2nd dose if she is still symptomatic in 3 days. Otherwise she can say that dose for future episode. Reviewed the frequent occurrence of yeast infections in the setting of diabetes and elevated blood sugars but she reports her blood sugars as being very well controlled and never higher than the 120 that it was this morning postprandial. I congratulated her on her self-care. I reminded her to make her annual exam appointment with whoever she sees. Medications: New fluconazole may repeat second dose 72 hrs after first dose if symptoms persist 150 mg PO Q3D 2 doses 2 tabs 0RF Coding Level of Care Code Est Pt Level 3 (36072) Diagnoses Potential exposure to STD Z20.2 Diabetes E11.9 Yeast infection of the vagina B37.31
[2024-06-17 11:14] VITALS: BP 110/70; BMI 23.6
--- OUTSIDE RECORDS SUMMARY | 2024-06-17 12:42 | XMS_ITS | Clinical Summary ---
Author Organization [facility] Address [address] [place] [address] Phone Care Team Providers Care Greige Mender Name Role Phone Breanne Fermin MD Primary Care Provider [phone] Allergies No known active allergies Encounters Date Type Department Care Team Description 04/09/2024 10:01 AM EST - 04/09/2024 1:00 PM EST Emergency [facility] Emergency [address] [place] [address] Castillo Chan, Arm weakness (Primary Dx) Discharge Disposition: Left Against Medical Advice from Last 3 Months Surgical History Surgery Date Site/Laterality Comments OTHER SURGICAL HISTORY PROCEDURE: DENIES PREVIOUS SURGERY Medical History Medical History Date Comments Patient denies medical problems DX:Patient denies medical problems Social History Tobacco Use Types Packs/Day Years Used Date Smoking Tobacco: Never Assessed Comments Unknown Sex and Gender Information Value Date Recorded Sex Assigned at Female 04/09/2024 10:59 AM EST Legal Sex Female 9:32 AM EST Gender Identity Female 04/09/2024 10:59 AM EST Sexual Orientation Straight 04/09/2024 10 :59 AM EST Obstetrics History Last Filed Vital Signs Vital Sign Reading Time Taken Comments Blood Pressure 131/85 04/09/2024 9:51 AM EST Pulse 87 04/09/2024 9:51 AM EST Temperature 36.6 ??C (97.9 ??F) 04/09/2024 9:51 AM ES T Respiratory Rate 18 04/09/2024 9:51 AM EST Oxygen Saturation 97% 04/09/2024 9:51 AM EST Inhaled Oxygen Concentration - - Weight 59 kg (130 lb) 04/09/2024 9:51 AM EST Height 165.1 cm (5' 5 ) 04/09/2024 9:51 AM EST Body Mass Index 21.63 04/09/2024 9:51 AM EST Plan of Treatment Health Maintenance Due Date Last Done Comments Breast Cancer Screening 1980 Diabetes: Annual Foot Exam 02/07/1990 Diabetes: Annual Retina Eye Exam 02/07/1990 DTaP,Tdap,and Td Vaccines (1 - Tdap) 02/07/1999 Hepatitis B Vaccines (1 of 3 - 19+ 3-dose series) 02/07/1999 Cervical Cancer Screening: P ap Smear 02/07/2001 Social Influencers of Health Screening 01/15/2022 COVID-19 Vaccine ( - 2023-2 5 season) 2023 Diabetes: Annual Urine Albumin-Creatinine Ratio (uACR) 04/09/2024 Diabetes: Blood Sugar Contro l Test (HGBA1C) 04/09/2024 08/29/2023 Depression Screening 08/28/2024 08/29/2023 Influenza Vaccine (Season Ended) 2024 Diabetes: Annual GFR (Glomer ular Filtration Rate) 04/09/2025 04/09/2024 Cholesterol Screening (Lipid Panel) 04/19/2027 04/18/2022 HIV Screening Completed 08/29/2023 Hepatitis C Screening Completed 08/29/2023 HIB Vaccines Aged Out No longer eligi ble based on patient's age to complete this topic HPV Vaccines Aged Out No longer eligi ble based on patient's age to complete this topic Hepatitis A Vaccines Aged Out No long er eligible based on patient's age to complete this topic IPV Vaccines Aged Out No longer eligi ble based on patient's age to complete this topic MMR Vaccines Aged Out No longer eligi ble based on patient's age to complete this topic Meningococcal ACWY Vaccine Aged Out N o longer eligible based on patient's age to complete this topic Meningococcal B Vaccine Aged Out No l onger eligible based on patient's age to complete this topic Pneumococcal Vaccine: Pediat rics (0 to 5 Years) and At-Risk Patients (6 to 64 Years) Aged Out No longer eligi ble based on patient's age to complete this topic RSV Immunization Patients Un janet 20 months Aged Out No longer eligible b ased on patient's age to complete this topic Varicella Vaccines Aged Out No longer eligible based on patient's age to complete this topic Procedures Procedure Name Priority Date/Time Associated Diagnosis Comments ECG ANNOTATED 04/13/2024 ECG 12-LEAD STAT 04/09/2024 10:[address] ANGIO HEAD/NECK STROKE WO AND/OR W CONTRAST STAT 04/09/2024 10:[address] HEAD STROKE WO CONTRAST STAT 04/09/2024 10:46 AM EST CBC WITH AUTO DIFFERENTIAL STAT 04/09/2024 10:33 AM EST PROTHROMBIN TIME WITH INR STAT 04/09/2024 10:33 AM EST ACTIVATED PARTIAL THROMBOPLASTIN TIME STAT 04/09/2024 10:33 AM EST CBC AND DIFFERENTIAL STAT 04/09/2024 10:33 AM EST BASIC METABOLIC PANEL STAT 04/09/2024 10:33 AM EST from Last 3 Months Results * ECG-Annotated (04/13/2024) Provider Onbase ECG ORDERABLES Final Result * ECG 12 lead (04/09/2024 10:56 AM EST) Ventricular Rate ECG 74 BPM GEMUSE Atrial Rate 74 BPM GEMUSE P-R Interval 140 ms GEMUSE QRS Duration 78 ms GEMUSE Q-T Interval 428 ms GEMUSE QTc 475 ms GEMUSE P Wave [place] 24 degrees GEMUSE R [place] 15 degrees GEMUSE T [place] 30 degrees GEMUSE ECG Interpretation Normal sinus rhythm Normal ECG When compared with ECG of 24-MAR-2022 05:31, No significant change was found Confirmed by MD Diego, Randall ([id number]) on 04/09/2024 9:54:57 PM GEMUSE 04/09/2024 10:5 6 AM EST 04/09/2024 9:54 PM EST us Marco Larose MD ECG ORDERABLES Final Result GEMUSE * CT Head Stroke wo Contrast (04/09/2024 10:46 AM EST) Anatomical Region Laterality Modality Head and Neck Computed Tomogra phy 04/09/2024 11:5 6 AM EST Impressions 04/09/2024 11:57 AM EST No acute findings. Results communicated via the secure text messaging system to CASTILLO CHAN. A Critical Document Only message has been documented for the office of CASTILLO CHAN in the [employer] Actionable Findings ??system on 04/09/2024 11:57 AM, Message ID [id number]. -------- FINAL REPORT -------- Dictated By: David Redman Dictated Date: 04/09/2024 11:56 ET Assigned Physician: David Redman Reviewed and Electronically Signed By: David Redman Signed Date: 04/09/2024 11:57 ET Workstation ID: [id number] Transcribed By: Self Edit Transcribed Date: 04/09/2024 11:56 ET Narrative 04/09/2024 11:57 AM EST PROCEDURE: Noncontrast head CT. HISTORY: Neuro deficit, acute, stroke suspected. COMPARISON: None. TECHNIQUE: Noncontrast head CT with coronal and sagittal reformats. Dose length product: 717 mGy-cm. FINDINGS: BRAIN: No hemorrhage, edema, mass, or extra-axial fluid collection. ??No CT evidence of an acute large vessel infarct. ??Ventricles and sulci are age commensurate. ORBITS: Normal. SINUSES/MASTOIDS: Normal. CALVARIUM: Normal. OTHER: The skull base soft tissues are normal. ??Mild degenerative changes of the temporomandibular joints Procedure Note David Redman MD - 04/09/2024 PROCEDURE: Noncontrast head CT. HISTORY: Neuro deficit, acute, stroke suspected. COMPARISON: None. TECHNIQUE: Noncontrast head CT with coronal and sagittal reformats. Dose length product: 717 mGy-cm. FINDINGS: BRAIN: No hemorrhage, edema, mass, or extra-axial fluid collection. No CTevidence of an acute large vessel infarct. Ventricles and sulci are agecommensurate. ORBITS: Normal. SINUSES/MASTOIDS: Normal. CALVARIUM: Normal. OTHER: The skull base soft tissues are normal. Mild degenerative changesof the temporomandibular joints IMPRESSION: No acute findings. Results communicated via the secure text messaging system to CASTILLO STEPHENS. A Critical Document Only message has been documented for the office ofCASTILLO CHAN in the [employer] system on04/09/2024 11:57 AM, Message ID [id number]. -------- FINAL REPORT -------- Dictated By: David Redman Dictated Date: 04/09/2024 11:56 ET Assigned Physician: David Redman Reviewed and Electronically Signed By: David Redman Signed Date: 04/09/2024 11:57 ET Workstation ID: [id number] Transcribed By: Self Edit Transcribed Date: 04/09/2024 11:56 ET us Castillo Chan DO IMG CT PROCEDURES Final Result * CT Angio Head/Neck Stroke wo and/or w Contrast (04/09/2024 10:46 AM EST) Anatomical Region Laterality Modality Head and Neck Computed Tomogra phy 04/09/2024 11:5 1 AM EST Impressions 04/09/2024 11:56 AM EST 1. ??No acute intracranial findings. 2. ??Soft plaque in the left carotid bulb results in mild narrowing of the proximal left internal carotid artery. ??There is no large vessel occlusion or hemodynamically significant stenosis. 3. ??Multinodular thyroid gland which could be better evaluated with ultrasound. -------- FINAL REPORT -------- Dictated By: David Redman Dictated Date: 04/09/2024 11:51 ET Assigned Physician: David Redman Reviewed and Electronically Signed By: David Redman Signed Date: 04/09/2024 11:56 ET Workstation ID: [id number] Transcribed By: Self Edit Transcribed Date: 04/09/2024 11:51 ET Narrative 04/09/2024 11:56 AM EST PROCEDURE: CT angiogram of the neck and [place] of [place] and delayed postcontrast CT images of the brain. HISTORY: Neuro deficit, acute, stroke suspected. COMPARISON: None. TECHNIQUE: CT angiogram of the neck and [place] of [place] with multiplanar reformats. ??Delayed postcontrast CT images of the brain. IV contrast dose: 90 mL ISOVUE-370. Dose length product: ??2165 mGy-cm. FINDINGS: BRAIN: No hemorrhage, edema, mass, or extra-axial fluid collection. ??No CT evidence of an acute large vessel infarct. ??Ventricles and sulci are age commensurate. 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 ??The right subclavian artery is partially obscured by streak artifact. ??No visible subclavian stenosis. ??There is a small amount of soft plaque slightly narrowing the proximal left internal carotid artery, without a hemodynamically significant stenosis. ??The right vertebral artery is dominant. ??The left vertebral artery is diminutive above the PICA. The basilar artery and artist consultant are widely patent. ??The anterior and middle cerebral arteries are widely patent. ??No evidence of aneurysm or vascular malformation. ??The dural venous sinuses are patent. ORBITS: Normal. SINUSES/MASTOIDS: Prominent mucous retention cysts in the right maxillary antrum. CALVARIUM: Normal. OTHER: There is a subcentimeter cyst in the posterior periphery of the left upper lobe of the lung. ??Heterogeneous thyroid gland with multiple small nodules. Procedure Note David Redman MD - 04/09/2024 PROCEDURE: CT angiogram of the neck and [place] of [place] and delayedpostcontrast CT images of the brain. HISTORY: Neuro deficit, acute, stroke suspected. COMPARISON: None. TECHNIQUE: CT angiogram of the neck and [place] of [place] with multiplanarreformats. Delayed postcontrast CT images of the brain. IV contrast dose: 90 mL ISOVUE-370. Dose length product: 2165 mGy-cm. FINDINGS: BRAIN: No hemorrhage, edema, mass, or extra-axial fluid collection. No CTevidence of an acute large vessel infarct. Ventricles and sulci are agecommensurate. 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 Novisible subclavian stenosis. There is a small amount of soft plaqueslightly narrowing the proximal left internal carotid artery, without ahemodynamically significant stenosis. The right vertebral artery isdominant. The left vertebral artery is diminutive above the PICA. The basilar artery and artist consultant are widely patent. The anterior and middlecerebral arteries are widely patent. No evidence of aneurysm or vascularmalformation. The dural venous sinuses are patent. ORBITS: Normal. SINUSES/MASTOIDS: Prominent mucous retention cysts in the right maxillaryantrum. CALVARIUM: Normal. OTHER: There is a subcentimeter cyst in the posterior periphery of theleft upper lobe of the lung. Heterogeneous thyroid gland with multiplesmall nodules. IMPRESSION: 1. No acute intracranial findings. 2. Soft plaque in the left carotid bulb results in mild narrowing of theproximal left internal carotid artery. There is no large vessel occlusionor hemodynamically significant stenosis. 3. Multinodular thyroid gland which could be better evaluated withultrasound. -------- FINAL REPORT -------- Dictated By: David Redman Dictated Date: 04/09/2024 11:51 ET Assigned Physician: David Redman Reviewed and Electronically Signed By: David Redman Signed Date: 04/09/2024 11:56 ET Workstation ID: [id number] Transcribed By: Self Edit Transcribed Date: 04/09/2024 11:51 ET Castillo Chan DO IMG CT PROCEDURES Final Result * (ABNORMAL) CBC auto differential (04/09/2024 10:33 AM EST) WBC 8.2 4.8 - 10.8 [facility] HEMETOLOGY METHOD 04/09/2024 10:53 AM EST [facility] RBC 4.40 3.80 - 4.80 [facility] LAB HEMETOLOGY METHOD 04/09/2024 10:53 AM [facility] Hemoglobin 10.2(L) 11.5 - 16.0 g/dL LAB HEMETOLOGY METHOD 04/09/2024 10:53 AM [facility] Hematocrit 34.5(L) 35.0 - 47.0 % LAB HEMETOLOGY METHOD 04/09/2024 10:53 AM [facility] MCV 77.9(L) 79.0 - 98.0 FL LAB HEMETOLOGY METHOD 04/09/2024 10:53 AM [facility] MCH 23.0(L) 27.0 - 32.0 pcg LAB HEMETOLOGY METHOD 04/09/2024 10:53 AM [facility] MCHC 29.6(L) 32.0 - 37.0 g/dL LAB HEMETOLOGY METHOD 04/09/2024 10:53 AM [facility] RDW 18.6(H) 11.0 - 15.0 % LAB HEMETOLOGY METHOD 04/09/2024 10:53 AM [facility] Platelets 539(H) 130 - 400 K/mcL LAB HEMETOLOGY METHOD 04/09/2024 10:53 AM [facility] MPV 9.2 7.0 - 11.0 FL LAB HEMETOLOGY METHOD 04/09/2024 10:53 AM [facility] NRBC 0.0 <1.0 % LAB HEMETOLOGY METHOD 04/09/2024 10:53 AM [facility] NRBC Absolute 0.00 <0.10 K/mcL LAB HEMETOLOGY METHOD 04/09/2024 10:53 AM [facility] Neutrophils Relative 56.3 % LAB HEMETOLOGY METHOD 04/09/2024 10:53 AM [facility] Lymphocytes Relative 34.7 % LAB HEMETOLOGY METHOD 04/09/2024 10:53 AM [facility] Monocytes Relative 6.3 % LAB HEMETOLOGY METHOD 04/09/2024 10:53 AM [facility] Eosinophils Relative 1.3 % LAB HEMETOLOGY METHOD 04/09/2024 10:53 AM [facility] Basophils Relative 1.2 % LAB HEMETOLOGY METHOD 04/09/2024 10:53 AM [facility] Immature Granulocytes Relative 0.2 % LAB HEMETOLOGY METHOD 04/09/2024 10:53 AM [facility] Neutrophils Absolute 4.61 1.50 - 7.00 K/mcL LAB HEMETOLOGY METHOD 04/09/2024 10:53 AM [facility] Lymphocytes Absolute 2.85 1.00 - 5.00 K/mcL LAB HEMETOLOGY METHOD 04/09/2024 10:53 AM [facility] Monocytes Absolute 0.52 0.20 - 1.00 K/mcL LAB HEMETOLOGY METHOD 04/09/2024 10:53 AM [facility] Eosinophils Absolute 0.11 0.00 - 0.50 K/mcL LAB HEMETOLOGY METHOD 04/09/2024 10:53 AM [facility] Basophils Absolute 0.10 0.00 - 0.20 K/mcL LAB HEMETOLOGY METHOD 04/09/2024 10:53 AM [facility] Immature Granulocytes Absolute 0.02 0.00 - 0.03 K/mcL LAB HEMETOLOGY METHOD 04/09/2024 10:53 AM [facility] Blood Venous blood specimen / Unknown Venipuncture / Unknown 04/09/2024 10:33 AM EST 04/09/2024 10:43 AM EST us Castillo Chan DO LAB BLOOD ORDERABLES Final Res ult [facility] [address] [place] [address], [place] [phone] * Activated partial thromboplastin time (04/09/2024 10:33 AM EST) [facility] aPTT 30.7 24.1 - 39.3 sec LAB COAGULATION METHOD 04/09/2024 11:03 AM EST [facility] Blood Venous blood specimen / Unknown Venipuncture / Unknown 04/09/2024 10:33 AM EST 04/09/2024 10:43 AM EST us Castillo Chan DO LAB BLOOD ORDERABLES Final Res ult [facility] [address] [place] [address], [place] [phone] * Prothrombin time with INR (04/09/2024 10:33 AM EST) [facility] Protime 11.0 10.6 - 13.9 sec LAB COAGULATION METHOD 04/09/2024 11:03 AM EST [facility] INR 0.9 LAB COAGULATION METHOD 04/09/2024 11:03 AM EST [facility] Blood Venous blood specimen / Unknown Venipuncture / Unknown 04/09/2024 10:33 AM EST 04/09/2024 10:43 AM EST Castillo Chan DO LAB BLOOD ORDERABLES Final Res ult [facility] [address] [place] [address], [place] [phone] * (ABNORMAL) Basic metabolic panel (04/09/2024 10:33 AM EST) [facility] Sodium 139 133 - 145 mmol/L LAB CHEMISTRY METHOD 04/09/2024 11:36 AM EST [facility] Potassium 3.7 3.5 - 5.5 mmol/L LAB CHEMISTRY METHOD 04/09/2024 11:36 AM [facility] Chloride 107 96 - 110 mmol/L LAB CHEMISTRY METHOD 04/09/2024 11:36 AM [facility] CO2 25 21 - 32 mmol/L LAB CHEMISTRY METHOD 04/09/2024 11:36 AM [facility] Anion Gap 7 3 - 11 LAB CHEMISTRY METHOD 04/09/2024 11:36 AM [facility] Glucose 102(H) 70 - 100 mg/dL LAB CHEMISTRY METHOD 04/09/2024 11:36 AM [facility] BUN 5 5 - 25 mg/dL LAB CHEMISTRY METHOD 04/09/2024 11:36 AM [facility] Creatinine 0.52 0.50 - 1.10 mg/dL LAB CHEMISTRY METHOD 04/09/2024 11:36 AM [facility] eGFR 118 >=60 mL/min/1. 73m2 LAB CHEMISTRY METHOD 04/09/2024 11:36 AM [facility] Comment:Calculation based on the??Chronic Kidney Disease Epidemiology Collaboration (CKD-EPI) equation refit??without adjustment for race. BUN/Creatinine Ratio 9.6 LAB CHEMISTRY METHOD 04/09/2024 11:36 AM [facility] Calcium 9.6 8.5 - 10.5 mg/dL LAB CHEMISTRY METHOD 04/09/2024 11:36 AM [facility] Blood Venous blood specimen / Unknown Venipuncture / Unknown 04/09/2024 10:33 AM EST 04/09/2024 10:43 AM EST us Castillo Chan DO LAB BLOOD ORDERABLES Final Res ult [facility] [address] [place] [address], [place] [phone] from Last 3 Months Insurance Care Teams Greige Mender Relationship Specialty Start Date End Date Breanne Fermin MD [address] [place] [id number] PCP - General Internal Medicine 06/16/24
--- OUTSIDE RECORDS SUMMARY | 2024-06-17 12:42 | XMS_ITS | Encounter Summary ---
Author Organization [facility] Address [address] [place] [address] Care Team Providers Care Rn Intern Name Role Phone Breanne Fermin MD Primary Care Provider [phone] Encounter Details Date Type Department Care Team ([facility] st Contact Info) Description 06/16/2024 Orders Only [facility] [address] [place] [address] ProviderYvette MD Social History Tobacco Use Types Packs/Day Years Used Date Smoking Tobacco: Every Day Cigarettes Passive Smoke Exposure: Current Smokeless Tobacco: Never Alcohol Use Standard Drinks/Week Comments Never 0 (1 standard drink = 0.6 oz pur e alcohol) Alcohol Answer Date Recorded Frequency of Alcohol Consumption Not on file 08/29/2023 Average Number of Drinks Not on file 024 Frequency of Binge Drinking Not on file 08/18 Score 0 08/29/2023 Depression Answer Date Recorded Patient Health Questionnaire-9 Score 0 08/29/2023 Patient Health Questionnaire-9 Score 0 08/29/2023 Last PHQ-9: Questionnaire Data Not on file 0 08/29/2023 Housing Stability Answer Date Recorded What is your housing situation today? I have michael stanton 08/19/[address] you li ve. Do you have problems with any of the following? None of the above 08/19/2023 Food Insecurity Answer Date Recorded Within the past 12 months, y ou worried that your food would run out before you got money to buy more: Never True 08/19/2023 Within the past 12 months,th e food you bought just didn't last and you didn't have enough money to get more: Never True 02/2023 Transportation Answer Date Recorded In the past 12 months, has l ack of transportation kept you from medical appts, meetings, work or from getting things needed for daily living? No 08/19/2023 Utilities Answer Date Recorded In the past 12 months, has t he electric, gas, oil or water company threatened to shut off services in your home? No 08/19/2023 Depression Answer Date Recorded Patient Health Questionnaire-2 Score 0 08/29/2023 Internet Access Answer Date Recorded Internet Access Q1 Yes 10/21/2023 Internet Access Q2 Not on file 10/21/2023 Comments Unknown Sex and Gender Information Value Date Recorded Sex Assigned at Female 04/11/2022 3:53 PM EST Legal Sex Female 3:50 PM EST Gender Identity Female 04/11/2022 3:53 PM EST Sexual Orientation Straight 04/11/2022 3: 53 PM EST documented as of this encounter Plan of Treatment Upcoming Encounters Date Type Department Care Team ([facility] st Contact Info) Description 06/30/2024 11:15 AM EDT Office Visit [facility] [address], [place] [id number] Breanne Fermin MD [address] [place] [address] documented as of this encounter Procedures Procedure Name Priority Date/Time Associated Diagnosis Comments CTA HEAD NECK W AND WO CONTRAST Routine 04/09/2024 1:40 PM EST documented in this encounter Results * CTA Head Neck w/ and w/o Contrast (04/09/2024 1:40 PM EST) Anatomical Region Laterality Modality Head, Neck Computed Tomogra phy us Historical Provider MD CARDOSO CT PROCEDURES Final R esult documented in this encounter Visit Diagnoses Not on filedocumented in this encounter Additional Health Concerns Assessment Noted Time PHQ-9 Depression Total Score: 0 08/29/19 24 2:28 PM EDT documented as of this encounter Care Teams Rn Intern Relationship Specialty Start Date End Date Breanne Fermin MD [address] [place] [address] PCP - General Internal Medicine 05/02/22 documented as of this encounter
--- OUTSIDE RECORDS SUMMARY | 2024-06-17 12:42 | XMS_ITS | Encounter Summary ---
Author Organization [employer] Address [address] [facility] 7 [place] [address] Care Team Providers Care Cvicu Nurse Name Role Phone Breanne Fermin MD Primary Care Provider [phone] Reason for Visit * Reason Onset Date Comments Appointment Request 06/16/2024 Encounter Details Date Type Department Care Team ([facility] Contact Info) Description 06/16/[address] [facility] [address] [place] [address] Breanne Fermin MD [address] [place] [phone] Appointment Request Social History Tobacco Use Types Packs/Day Years [...] PM EST documented as of this encounter Miscellaneous Notes * Telephone Encounter - Ирина Trejo RN - 06/17/2024 9:28 AM EDT TC to pt. Pt appointment schdudeled for June at 11:[address] Fermin for an office visit to f/u on diabetes and a multinodular thyroid that was found on CT scan in March (just sent to us 06/16). RN explained to pt that nodules are growths that are most of the time non-cancerous, but it is still a good idea for her to get everything looked at. Pt verbalized understanding and agreement with the plan of care. * Telephone Encounter - Ирина Trejo RN - 06/17/2024 9:27 AM EDT ----- Message from Breanne Fermin MD sent at 06/17/2024 6:33 AM EDT ----- Was just sent this CT Angiogram result That I didn't order ( done by Er )and was done in 04/14 and radiologist is recommending a thyroid US to be ordered due to incidental finding of multinodular thyroid. Can we schedule this patient with me for in person or via televisit as she has not been seen byme since 08/2023 and she is diabetic and I need to schedule her for this as well and will need a note most likely.Thanks ----- Message ----- From: Shraddha Yoder Sent: 06/16/2024 1:41 PM EDT To: Breanne Fermin MD A new document has been added to this order with description CT Angio Head/Neck. * Telephone Encounter - Hyacinth Velazco RN - 06/17/2024 9:22 AM EDT ----- Message from Breanne Fermin MD sent at 06/17/2024 6:33 AM EDT ----- Was just sent this CT Angiogram result That I didn't order ( done by Er )and was done in 04/14 and radiologist is recommending a thyroid US to be ordered due to incidental finding of multinodular thyroid. Can we schedule this patient with me for in person or via televisit as she has not been seen byme since 08/2023 and she is diabetic and I need to schedule her for this as well and will need a note most likely.Thanks ----- Message ----- From: Shraddha Yoder Sent: 06/16/2024 1:41 PM EDT To: Breanne Fermin MD A new document has been added to this order with description CT Angio Head/Neck. * Telephone Encounter - Johnny German - 06/16/2024 9:40 AM EDT Tc from pt requesting a appt with PCP regarding her hands being Swollen still and they havent changed. Pt states that it hasn't gotten worse and that its the same. Contact pt at [phone] documented in this encounter Plan of Treatment Upcoming Encounters Date Type Department Care Team (Late st Contact Info) Description 06/30/2024 11:15 AM EDT Office Visit [facility] MED & PEDS [address] [place] [address] Breanne Fermin MD [address] [place] [address] documented as of this encounter Visit Diagnoses Not on filedocumented in this encounter Additional Health Concerns Assessment Noted Time PHQ-9 Depression Total Score: 0 08/29/19 24 2:28 PM EDT documented as of this encounter Care Teams Cvicu Nurse Relationship Specialty Start Date End Date Breanne Fermin MD [address] [place] [address] PCP - General Internal Medicine 05/02/22 documented as of this encounter
--- OUTSIDE RECORDS SUMMARY | 2024-06-17 12:42 | XMS_ITS | Encounter Summary ---
Author Organization [email or web address] Address [address] [facility] 7t [place] [address] Care Team Providers Care Cook Manager Name Role Phone Breanne Fermin MD Primary Care Provider [phone] Encounter Details Date Type Department Care Team ([facility] Contact Info) Description 04/19/2022 Abstract [facility] MED & PEDS [address] [place], [place] [phone] Ana Ashford MD [address] [place] [address] Social History Tobacco Use Types Packs/Day Years Used Date Smoking Tobacco: Every Day Cigarettes Passive Smoke Exposure: Current Smokeless Tobacco: Never Alcohol Use Standard Drinks/Week Comments Never 0 (1 standard drink = 0.6 oz pur e alcohol) Alcohol Answer Date Recorded How often do you have a drink containing alcohol ? 1 04/18/2022 How many drinks containing a lcohol do you have on a typical day when you are drinking? 2 04/18/2022 How often do you have six or more drinks on one occasion? 1 04/18/2022 Depression Answer Date Recorded Patient Health Questionnaire-9 Score 0 04/18/2022 Depression Answer Date Recorded Patient Health Questionnaire-2 Score 0 04/18/2022 Comments Unknown Sex and Gender Information Value Date Recorded Sex Assigned at Female 04/11/2022 3:53 PM EST Legal Sex Female 3:50 PM EST Gender Identity Female 04/11/2022 3:53 PM EST Sexual Orientation Straight 04/11/2022 3: 53 PM EST COVID-19 Exposure Response Date Recorded In the last 10 days, have yo u been in contact with someone who was confirmed or suspected to have Coronavirus/COVID-19? No / Unsure 04/18/2022 9:32 AM EST documented as of this encounter Plan of Treatment Upcoming Encounters Date Type Department Care Team (Late st Contact Info) Description 06/30/2024 11:15 AM EDT Office Visit [facility] MED & PEDS [address] [place] [address] Breanne Fermin MD [address] [place] [address] documented as of this encounter Visit Diagnoses Not on filedocumented in this encounter Additional Health Concerns Assessment Noted Time PHQ-9 Depression Total Score: 0 04/19/19 10:37 AM EST documented as of this encounter Care Teams Cook Manager Relationship Specialty Start Date End Date Breanne Fermin MD [address] [place] [address] PCP - General Internal Medicine 05/02/22 documented as of this encounter
--- OUTSIDE RECORDS SUMMARY | 2024-06-17 12:43 | XMS_ITS | Clinical Summary ---
Author Organization [employer] Address [address] [place] [address] 7t [place] [address] Care Team Providers Care Steel Checker Name Role Phone Breanne Fermin MD Primary Care Provider [phone] Allergies No known active allergies Medications Blood Glucose Monitoring Suppl (FreeStyle Lite) deviceIndicatio ns:Type 2 diabetes mellitus without complication, without long-term current use of insulin (CMS/HCC) Inject under the skin every 12 (twelve) hours. 1 each 3 Active metFORMIN (Glucophage) 1000 MG tabletIndicatio ns:Type 2 diabetes mellitus without complication, without long-term current use of insulin (CMS/HCC),Throm bus Take 1 tablet (1,000 mg) by mouth with breakfast and with evening meal. 180 tablet 1 5 04/01/19 26 Active ferrous sulfate 325 (65 Fe) MG EC tabletIndicatio ns:H/O iron deficiency anemia TAKE 1 TABLET BY MOUTH TWICE A DAY 180 tablet 1 5 Active aspirin 81 MG EC tabletIndicatio ns:Right hand weakness Take 1 tablet (81 mg) by mouth Once per day. 30 tablet 5 5 04/13/19 26 Active Active Problems Problem Noted Date Diagnosed Date Diabetes mellitus, new onset 04/18/2022 H/O iron deficiency anemia 04/18/2022 Encounters Date Type Department Care Team Description 06/16/2024 Orders Only [facility] MED & PEDS [address] [place], [place] [phone] ProviderYvette MD 06/16/2024 Telephone [facility] MEDICINE [address] [place] [address] Breanne Fermin MD Appointment Request 05/01/2024 Population Health Risk Score [facility] () Department [address] [place] [phone] Provider, Population Health Generic 04/27/2024 Telephone [facility] MED & PEDS [address] [place] [address] Breanne Fermin MD recall 04/13/2024 1:00 PM EST Office Visit [facility] MED & PEDS [address] [place] [address] Verna Cano MD Right hand weakness (Primary Dx); Multinodular thyroid 04/13/2024 Travel 04/13/2024 Telephone [facility] MEDICINE [address] [place], [place] [phone] Breanne Fermin MD Nurse Triage 04/10/2024 Patient Outreach [facility] MED & PEDS [address] [place], [place] [phone] Breanne Fermin MD Care Coordination (Outreach) 03/31/2024 Refill [facility] MED[facility]INE [address] [place] [address] Breanne Fermin MD Type 2 diabetes mellitus without complication, without long-term current use of insulin ([facility]); Thrombus; H/O iron deficiency anemia from Last 3 Months Family History Medical History Relation Name Comments Diabetes Brother Diabetes Mother Relation Name Status Comments Brother Alive Mother Social History Tobacco Use Types Packs/Day Years Used Date Smoking Tobacco: Every Day Cigarettes Passive Smoke Exposure: Current Smokeless Tobacco: Never Tobacco Cessation:Ready to Q uit: Not Asked; Counseling Given: Not Answered Alcohol Use Standard Drinks/Week Comments Never 0 [...] Orientation Straight 04/11/2022 3: 53 PM EST Last Filed Vital Signs Vital Sign Reading Time Taken Comments Blood Pressure 116/76 04/13/2024 1:42 PM EST Pulse 102 04/13/2024 1:42 PM EST Temperature 36.4 ??C (97.6 ??F) 04/13/2024 1:42 PM ES T Respiratory Rate 14 04/13/2024 1:42 PM EST Oxygen Saturation 98% 04/13/2024 1:42 PM EST Inhaled Oxygen Concentration - - Weight 61.7 kg (136 lb) 04/13/2024 1:42 PM EST Height 156.2 cm (5' 1.5 ) 04/13/2024 1:42 PM EST Body Mass Index 25.28 04/13/2024 1:42 PM EST Plan of Treatment Upcoming Encounters Date Type Department Care Team (Late st Contact Info) Description 06/30/2024 11:15 AM EDT Office Visit [facility] MED & PEDS [address] [place] [address] Breanne Fermin MD [address] [place] [address] Health Maintenance Due Date Last Done Comments Diabetes: Foot Exam 02/07/1990 Eye Exam 02/07/1990 Family Planning (PISQ) 02/07/1995 DTaP/Tdap/Td Vaccines (1 - Tdap) 02/07/1999 Diabetes: Urine Protein Screening 02/07/1999 Hepatitis B Vaccines (1 of 3 - 19+ 3-dose series) 02/07/1999 Pneumococcal Vaccine: Pediatrics (0 to 5 Years) and At-Risk Patients (6 to 49) Years) (1 of 2 - PCV) 02/07/1999 HPV/Cotest 02/07/2010 Lipid Panel 04/19/2023 04/18/2022 COVID-19 Vaccine (1 - 2023-2 5 season) 2023 Influenza Vaccine (#1) 2023 Mammogram 11/02/2023 11/01/2022 Diabetes: Hemoglobin A1C 02/29/2024 024, 08/08/2022, 04/18/2022 Alcohol/Substance Use Screening 08/28/2024 08/29/2023 Depression Screening 08/28/2024 08/29/2023, 08/29/2023 SDOH Screening 08/28/2024 08/29/2023 Cervical Cancer Screening 11/27/2024 Pap Smear 11/27/2024 11/27/2021 Tobacco Screening 01/23/2025 01/24/2024 Zoster Vaccines (1 of 2) 02/07/2030 RSV Patients and Patients Aged 60 years or older (1 - 1-dose 75+ series) 02/07/2055 HIV Screening Completed 08/29/2023 Hepatitis C Screening [...] patient's age to complete this topic Meningococcal Vaccine Aged Out No shane kristin eligible based on patient's age to complete this topic RSV under 20 months Aged Out No longe r eligible based on patient's age to complete this topic Rotavirus Vaccines Aged Out No longer eligible based on patient's age to complete this topic Procedures Procedure Name Priority Date/Time Associated Diagnosis Comments CTA HEAD NECK W AND WO CONTRAST Routine 04/09/2024 1:40 PM EST HEPATITIS C AB W/REFL TO HCV RNA, QN, PCR Routine 08/29/2023 3:00 PM EDT Routine general medical examination at a health care facility Dietary counseling Exercise counseling Diabetes mellitus, new onset (CMS/HCC) Bilateral ovarian cysts H/O iron deficiency anemia HIV 1/2 ANTIGEN/ANTIBODY, FOURTH GENERATION W/RFL Routine 08/29/2023 3:00 PM EDT Routine general medical examination at a health care facility Dietary counseling Exercise counseling Diabetes mellitus, new onset (CMS/HCC) Bilateral ovarian cysts H/O iron deficiency anemia POCT GLYCATED HEMOGLOBIN, TOTAL Routine 08/29/2023 2:42 PM EDT Diabetes mellitus, new onset (CMS/HCC) BI MAMMOGRAM SCREENING TOMOSYNTHESIS BILATERAL Routine 11/01/2022 10:40 AM EDT LIPID PANEL, STANDARD Routine 04/18/2022 10:48 AM EST Type 2 diabetes mellitus without complication, without long-term current use of insulin (CMS/HCC) LIQUID-BASED PAP TEST Routine 11/27/2021 12:00 AM EDT from Last 3 Months or Most Recently Relevant to Health Maintenance Results * CTA Head Neck w/ and w/o Contrast (04/09/2024 1:40 PM EST) Anatomical Region Laterality Modality Head, Neck Computed Tomogra phy us Historical Provider MD CARDOSO CT PROCEDURES Final R esult * Hepatitis C Antibody with Reflex to HCV, RNA, Quantitative, Real-Time PCR (08/29/2023 3:00 PM EDT) Hepatitis C Antibody Nonreactive Nonreactive [facility] Comment:Antibodies to HCV no t detected; does not exclude early acuteHCV infection. Blood Venous blood specimen / Unknown 08/29/2023 3:00 PM EDT 08/29/2023 5:32 PM EDT Breanne Fermin MD LAB BLOOD ORDERABLES Final Re sult Performing Organization Address [facility] Co de Phone Number [facility] [address] [place] [phone] * HIV-1/2 Antigen and Antibodies, Fourth Generation, with Reflexes (08/29/2023 3:00 PM EDT) [facility] HIV AB/AG Nonreactive Nonreactive [facility] Comment:HIV-1 p24 Ag and/or HIV-1/HIV-2 Ab not detected.A test result that is nonreactive does not exclude thepossibility of exposure to or infection with HIV-1 and/orHIV-2. Nonreactive results in this assay for individualswith prior exposure to HIV-1 and/or HIV-2 may be due toantigen and antibody levels that are below the limit ofdetection of this assay.The [employer] HIV Ag/Ab Combo assay result andsupplemental assay results should be interpreted inconjunction with the patient's clinical presentation,history and other laboratory results. If the results areinconsistent with clinical evidence, additional testing issuggested to confirm the result. Blood Venous blood specimen / Unknown 08/29/2023 3:00 PM EDT 08/29/2023 5:32 PM EDT Breanne Fermin MD LAB BLOOD ORDERABLES Final Re sult Performing Organization Address [facility]/ZIP Co de Phone Number [facility] [address] [place] [phone] * (ABNORMAL) POCT HGB A1C (08/29/2023 2:42 PM EDT) [facility] Hemoglobin A1C 6.8(A) 4.0 - 6.0 % QC Media Lot # [id number] Lot# Expiration Date Blood 08/29/2023 2:42 PM EDT us Breanne Fermin MD POINT OF CARE TEST ENTER/EDIT ORDERABLES Final Result * BI Mammogram Screening Tomosynthesis Bilateral (11/01/2022 10:40 AM EDT) Anatomical Region Laterality Modality Breast Bilateral Mammography 11/01/2022 10:4 0 AM EDT Narrative 11/18/2022 8:00 AM EDT ? [facility] ? [address] ?[place] [address] ? Mammography Report ? Signed ? Patient: Kenton,Dolores L ?MR#: [id number] ?? [id number] ? : 1980 ?Acct:[id number] ? Age/Sex: 42 / F ?ADM Date: 11/01/22 ? Loc: HO.MAMMO ? Attending Dr: Breanne Fermin MD ? Ordering Physician: Kamille Watkins CNFabrice ?Results: 2Beni ?? gn Findings ? Date of Service: 11/01/22 ?Follow Up: 1 Year From Orig ?? inal Mammogram ? Procedure(s): MM tomosynthesis screening BI ?? Accession Number(s): [id number] ? cc: Breanne Fermin MD; Kamille Watkins CNM ? EXAMINATION: ?? MM SCREENING DIGITAL BREAST TOMOSYNTHESIS, BILATERAL ? CLINICAL INFORMATION: ? Screening. Asymptomatic. ? COMPARISON: ?? Mammography: This study is compared with prior exams dating back to ?? 2006. ? TECHNIQUE: ?? Digital breast tomosynthesis is performed in both the craniocaudal and ?? mediolateral oblique views along with computer-aided detection (CAD). ?? Synthesized 2D images are generated from the tomosynthesis. ? FINDINGS: ?? The breasts are heterogeneously dense, which may obscure small masses ?? (ACR BI-RADS breast composition Category c). ? There are no significant masses, abnormal calcifications, or other ?? abnormalities. ?? 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 It contains a tissue marker and ?? few, unchanged, benign calcifications.. ? MM/MM tomosynthesis screening BI ?? IMPRESSION: ?? No mammographic evidence of malignancy. ? ASSESSMENT: ? BI-RADS BI-RADS 2 - Benign Findings ? RECOMMENDATION: ?? Routine annual mammography screening. ? 1 year F/U ? This examination should not preclude the clinical evaluation of a ?? suspicious palpable abnormality. ? This patient's information was entered into a reminder system with a ?? target due date for their next mammogram. ? Dictated By: ?Reyna Bruno MD ? Signed By: ?<Electronically signed by Reyna Bruno MD in OV> ? 11/18/22 0756 ? DD/ 1040 ? TD/TT: ? Hydrochlor[employer] Area Supervisor: ? Procedure Note Lolita Palacios - 11/18/2022 [facility] [address] [place] [address] Dr. [place], [place]Y [address] Mammography Report Signed Patient: Dolores Fung R#: [id number] : 1980Acct:[id number] Age/Sex: 42 / FADM Date: 11/01/22 Loc: HO.MAMMO Attending Dr: Breanne Fermin MD Ordering Physician: Kamille Watkins CNMResults: 2Beni gn Findings Date of Service: 11/01/22Follow Up: 1 Year From Orig ina Mammogram Procedure(s): MM tomosynthesis screening BI Accession Number(s): [id number] cc: Breanne Fermin MD; Kamille Watkins CNM EXAMINATION: MM SCREENING DIGITAL BREAST TOMOSYNTHESIS, BILATERAL CLINICAL INFORMATION: Screening. Asymptomatic. COMPARISON: Mammography: This study is compared with prior exams dating back to 2006. TECHNIQUE: Digital breast tomosynthesis is performed in both the craniocaudal and mediolateral oblique views along with computer-aided detection (CAD). Synthesized 2D images are generated from the tomosynthesis. FINDINGS: The breasts are heterogeneously dense, which may obscure small masses (ACR BI-RADS breast composition Category c). There are no significant masses, abnormal calcifications, or other abnormalities. 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 It contains a tissue marker and few, unchanged, benign calcifications.. MM/MM tomosynthesis screening BI IMPRESSION: No mammographic evidence of malignancy. ASSESSMENT: BI-RADS BI-RADS 2 - Benign Findings RECOMMENDATION: Routine annual mammography screening. 1 year F/U This examination should not preclude the clinical evaluation of a suspicious palpable abnormality. This patient's information was entered into a reminder system with a target due date for their next mammogram. Dictated By: Reyna Bruno MD Signed By: <Electronically signed by Reyna Bruno MD in OV> 11/18/22 0756 DD/ 1040 TD/TT: Hydrochloric Area Supervisor: [facility] External Provider IMG BI PROCEDURES Final Result * (ABNORMAL) Lipid Panel, Standard (04/18/2022 10:48 AM EST) Cholesterol, Total 155 <200 mg/dL [facility] HDL Cholesterol 29(L) > OR = 50 mg/dL [facility] Triglycerides 281(H) <150 mg/dL [employer] [place] [facility] Comment: If a non-fasting specimen was collected, consider repeat triglyceride testing on a fasting specimen if clinically indicated. Devin et al. J. of Clin. Lipidol. 2015;9:129-169. LDL Cholesterol 89 mg/dL (calc) [facility] [facility] [place] [facility] Comment: Reference range: <100 Desirable range <100 mg/dL for primary prevention; ?? <70 mg/dL for patients with CHD or diabetic patients with > or = 2 CHD risk factors. LDL-C is now calculated using the Estiven calculation, which is a validated novel method providing better accuracy than the Friedewald equation in the estimation of LDL-C. Bright SS et al. CATRINA. 2013;310(19): 2387-4051 (http://education.[employer]/faq/NXJ778) Chol/HDLC Ratio 5.3(H) <5.0 (calc) [facility] [place] [facility] Non-HDL Cholesterol 126 <130 mg/dL (calc) [facility] [place] [facility] Comment: For patients with diabetes plus 1 major ASCVD risk factor, treating to a non-HDL-C goal of <100 mg/dL (LDL-C of <70 mg/dL) is considered a therapeutic option. Blood Venous blood specimen / Unknown 04/18/2022 10:48 AM EST 04/18/2022 10:49 AM EST Narrative [facility] - 04/19/2022 7:54 AM EST FASTING:YES FASTING: YES Breanne Fermin MD LAB BLOOD ORDERABLES Final Re sult [facility] [address] [facility], [place] [phone] [employer] [place] [facility] [address] [facility], ([address]) [place] [address] * LIQUID-BASED PAP TEST (11/27/2021 12:00 AM EDT) Swab Historical Provider LAB CYTOLOGY ORDERABLES F inal Result from Last 3 Months or Most Recently Relevant to Health Maintenance Insurance C3 Care Teams Steel Checker Relationship Specialty Start Date End Date Breanne Fermin MD [address] [place] [phone] PCP - General Internal Medicine 05/02/22
--- OUTSIDE RECORDS SUMMARY | 2024-06-17 12:43 | XMS_ITS | Encounter Summary ---
Author Organization [employer] Address [address] [facility] 7 [place] [address] Care Team Providers Care Harnessmaker Name Role Phone Breanne Fermin MD Primary Care Provider [phone] Reason for Visit * Reason Onset Date Comments Referral 01/23/2023 Encounter Details Date Type Department Care Team ([facility] Contact Info) Description 01/23/2023 Telephone [facility] MED & PEDS [address] [place] [address] Breanne Fermin MD [address] [place] [address] Referral Social History Tobacco Use Types Packs/Day Years [...] Recorded Patient Health Questionnaire-9 Score 0 04/18/2022 Housing Stability Answer Date Recorded What is your housing situation today? I have michael stanton 12/06/[address] you li ve. Do you have problems with any of the following? None of the above 12/06/2022 Food Insecurity Answer Date Recorded Within the past 12 months, y ou worried that your food would run out before you got money to buy more: Never True 12/06/2022 Within the past 12 months,th e food you bought just didn't last and you didn't have enough money to get more: Never True Transportation Answer Date Recorded In the past 12 months, has l ack of transportation kept you from medical appts, meetings, work or from getting things needed for daily living? No 12/06/2022 Utilities Answer Date Recorded In the past 12 months, has t he electric, gas, oil or water company threatened to shut off services in your home? No 12/06/2022 Depression Answer Date Recorded Patient Health Questionnaire-2 Score 0 04/18/2022 Comments Unknown Sex and Gender Information Value Date Recorded Sex Assigned at Female 04/11/2022 3:53 PM EST Legal Sex Female 3:50 PM EST Gender Identity Female 04/11/2022 3:53 PM EST Sexual Orientation Straight 04/11/2022 3: 53 PM EST documented as of this encounter Miscellaneous Notes * Telephone Encounter - Christy Monreal - 03/20/2023 3:52 PM EST Referral sent to [address] [place] [address] per pt request * Telephone Encounter - Farrah Gomez - 01/23/2023 11:27 AM EST Tc from pt requesting a different location for obstetrics/Gynecology referral. 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 documented in this encounter Plan of Treatment Upcoming Encounters Date Type Department Care Team ([facility] Contact Info) Description 06/30/2024 11:15 AM EDT Office Visit [facility] PEDS [address] [place] [address] Breanne Fermin MD [address] [place] [address] documented as of this encounter Visit Diagnoses Not on filedocumented in this encounter Additional Health Concerns Assessment Noted Time PHQ-9 Depression Total Score: 0 04/19/19 10:37 AM EST documented as of this encounter Care Teams Harnessmaker Relationship Specialty Start Date End Date Breanne Fermin MD [address] [place] [phone] PCP - General Internal Medicine 05/02/22 documented as of this encounter
--- OUTSIDE RECORDS SUMMARY | 2024-06-17 12:43 | XMS_ITS | Encounter Summary ---
Author Organization [employer] Address [address] [facility] 7t [place] [address] Care Team Providers Care Councilman Name Role Phone Breanne Fermin MD Primary Care Provider [phone] Encounter Details Date Type Department Care Team ([facility] Contact Info) Description 01/26/2024 Orders Only [facility] MED & PEDS [address] [place], [place] [phone] Bill Albarran MD [address] [place] [address] Bacterial vaginosis (Primary Dx) Social History Tobacco Use Types Packs/Day Years [...] Description 06/30/2024 11:15 AM EDT Office Visit [facility] MED & PEDS [address] [place] [address] Breanne Fermin MD [address] [place] [address] documented as of this encounter Visit Diagnoses Diagnosis Bacterial vaginosis- Primary Unspecified vaginitis and vulvovaginitis documented in this encounter Additional Health Concerns Assessment Noted Time PHQ-9 Depression Total Score: 0 08/29/19 24 2:28 PM EDT documented as of this encounter Care Teams Councilman Relationship Specialty Start Date End Date Breanne Fermin MD [address] [place] [address] PCP - General Internal Medicine 05/02/22 documented as of this encounter
== END 2024-06-17 14:27 | disposition home or self-care (01) ==
PROVIDERS: PCP Pediatrics; Visit Provider Advanced Practice Midwife
DX: Z20.2 Contact with and (suspected) exposure to infections with a predominantly sexual mode of transmission (principal); E11.9 Type 2 diabetes mellitus without complications; B37.31 Acute candidiasis of vulva and vagina
CPT/HCPCS: 99213

== ENCOUNTER 2024-06-30 11:35 | Outpatient (REF) | payer MEDICAID, SELFPAY ==
--- OUTSIDE RECORDS SUMMARY | 2024-06-30 13:07 | XMS_ITS | Encounter Summary ---
Author Organization [employer] Address [address] [place] [address] [place] [address] Care Team Providers Care Handle Bender Name Role Phone Breanne Fermin MD Primary Care Provider [phone] Reason for Visit * Reason Onset Date Comments Referral 01/23/2023 Encounter Details Date Type Department Care Team ([facility] Contact Info) Description 01/23/2023 Telephone [facility] [address] [place], [place] [phone] Breanne Fermin MD [address] [place] [address] Referral Social History Tobacco Use Types Packs/Day [...] 03/20/2023 3:52 PM EST Referral sent to [address] [place] [address] per pt request * Telephone Encounter - Farrah Gomez - 01/23/2023 11:27 AM EST Tc from pt requesting a different location for obstetrics/Gynecology referral. Location: [address] [place] [address] [place] [address] Date: n/a Time: n/a Specialty: ENTRY LEVEL ACCOUNT REPRESENTATIVE documented in this encounter Plan of Treatment Upcoming Encounters Date Type Department Care Team ([facility] Contact Info) Description 10/02/2024 10:00 AM EDT Office Visit [facility] [address] [place] [address] Breanne Fermin MD [address] [place] [address] documented as of this encounter Visit Diagnoses Not on filedocumented in this encounter Additional Health Concerns Assessment Noted Time PHQ-9 Depression Total Score: 0 04/19/19 10:37 AM EST documented as of this encounter Care Teams Handle Bender Relationship Specialty Start Date End Date Breanne Fermin MD [address] [place] [address] PCP - General Internal Medicine 05/02/22 documented as of this encounter
--- OUTSIDE RECORDS SUMMARY | 2024-06-30 13:07 | XMS_ITS | Clinical Summary ---
Author Organization [employer] Address [address] [place] [address] 7[address] [place] [address] Care Team Providers Care Looping Inspector Name Role Phone Breanne Fermin MD Primary Care Provider [phone] Allergies No known active allergies Medications Blood Glucose Monitoring Suppl (FreeStyle Lite) deviceIndicat ions:Type 2 diabetes mellitus without complication, without long-term current use of insulin (CMS/[facility]) Inject under the skin every 12 (twelve) hours. 1 each 04/19/19 23 Active ferrous sulfate 325 (65 Fe) MG EC tabletIndicat ions:H/O iron deficiency anemia TAKE 1 TABLET BY MOUTH TWICE A DAY 180 tablet 1 04/01/19 25 Active aspirin 81 MG EC tabletIndicat ions:Right hand weakness Take 1 tablet (81 mg) by mouth Once per day. 30 tablet 5 04/13/19 25 2025 Active metFORMIN (Glucophage) 1000 MG tabletIndicat ions:Type 2 diabetes mellitus without complication, without long-term current use of insulin (CMS/HCC) Take 1 tablet (1,000 mg) by mouth with breakfast and with evening meal. 180 tablet 1 07/01/19 25 2025 Active metroNIDAZOLE (Metrogel) 0.75 % vaginal gel Insert into the vagina at bedtime. 70 g 07/01/19 25 Active metFORMIN (Glucophage) 1000 MG tabletIndicat ions:Type 2 diabetes mellitus without complication, without long-term current use of insulin (CMS/HCC),Thr ombus Take 1 tablet (1,000 mg) by mouth with breakfast and with evening meal. 180 tablet 1 04/01/19 25 2024 Discontinued(R eorder (will not trigger notification to Pharmacy)) metroNIDAZOLE (Metrogel) 0.75 % vaginal gel APPLY 1 APPLICATORFUL VAGINALLY BEDTIME FOR 5 DAYS 06/19/192024 Discontinued(R eorder (will not trigger notification to Pharmacy)) Active Problems Problem Noted Date Diagnosed Date Diabetes mellitus, new onset 04/18/2022 H/O iron deficiency anemia 04/18/2022 Encounters Date Type Department Care Team Description 06/30/2024 11:15 AM EDT Office Visit [facility] [address] [place] [address] Breanne Fermin MD Thyroid nodule (Primary Dx); Right hand weakness; Diabetes mellitus, new onset (CMS/HCC); Type 2 diabetes mellitus without complication, without long-term current use of insulin (CMS/HCC) 06/30/2024 Travel 06/23/2024 Patient Outreach [address] [address] Breanne Fermin MD Pre-visit Planning (Pre visit planning LVM ) 06/22/2024 Telephone [facility] [address] [place] [address] Breanne Fermin MD 06/17/2024 Orders Only GENERIC EXTERNAL DATA DEPARTMENT Provider, Generic External Data 06/16/2024 Orders Only [facility] [address] [place] [address] Yvette Saavedra MD 06/16/[address] [address] Breanne Fermin MD Appointment Request 05/01/2024 Population Health Risk Score [facility] Department [address] [place] [phone] Provider, Population Health Generic 04/27/2024 Telephone [facility] [address] [place] [address] Breanne Fermin MD recall 04/13/2024 1:00 PM EST Office Visit [facility] [address] [place] [address] Verna Cano MD Right hand weakness (Primary Dx); Multinodular thyroid 04/13/2024 Travel 04/13/2024 Telephone [facility] [address] [place] [address] Breanne Fermin MD Nurse Triage 04/10/2024 Patient Outreach [facility] [address] [place] [address] Breanne Fermin MD Care Coordination (Outreach) from Last 3 Months Family History Medical [...] Sign Reading Time Taken Comments Blood Pressure 109/69 06/30/2024 10:53 AM EDT Pulse 88 06/30/2024 10:53 AM EDT Temperature 36.4 ??C (97.6 ??F) 04/13/2024 1:42 PM ES T Respiratory Rate 20 06/30/2024 10:53 AM EDT Oxygen Saturation 99% 06/30/2024 10:53 AM EDT Inhaled Oxygen Concentration - - Weight 61.2 kg (135 lb) 06/30/2024 10:53 AM EDT Height 156.2 cm (5' 1.5 ) 06/30/2024 10:53 AM ED T Body Mass Index 25.09 06/30/2024 10:53 AM EDT Plan of Treatment Upcoming Encounters Date Type Department Care Team (Late st Contact Info) Description 10/02/2024 10:00 AM EDT Office Visit [facility] [address] [place] [address] Breanne Fermin MD [address] [place], [place] [phone] Health Maintenance Due Date Last Done Comments [...] 02/07/2010 Lipid Panel 04/19/2023 04/18/2022 COVID-19 Vaccine ( season) 2023 Influenza Vaccine (#1) 2023 Mammogram 11/02/2023 11/01/2022 Alcohol/Substance Use Screening 08/28/2024 08/29/2023 Depression Screening 08/28/2024 08/29/2023, 08/29/19 24 SDOH Screening 08/28/2024 08/29/2023 Cervical Cancer Screening 11/27/2024 Pap Smear 11/27/2024 11/27/2021 Diabetes: Hemoglobin A1C 12/31/2024 025, 08/29/2023, 08/08/2022, Additional history exists Tobacco Screening 06/30/2025 06/30/2024 Zoster Vaccines (1 of 2) 02/07/2030 RSV [...] Procedure Name Priority Date/Time Associated Diagnosis Comments POCT GLYCATED HEMOGLOBIN, TOTAL Routine 06/30/2024 11:31 AM EDT Diabetes mellitus, new onset (CMS/HCC) POCT GLUCOSE Routine 06/30/2024 11:30 AM EDT Diabetes mellitus, new onset (CMS/HCC) CHLAMYDIA/N. GONORRHOEAE RNA, TMA, UROGENITAL Routine 06/17/2024 11:00 AM EDT BACTERIAL VAGINOSIS PANEL Routine 06/17/2024 11:00 AM EDT CTA HEAD NECK W AND WO CONTRAST [...] Bilateral ovarian cysts H/O iron deficiency anemia BI MAMMOGRAM SCREENING TOMOSYNTHESIS BILATERAL Routine 11/01/2022 10:40 AM EDT LIPID PANEL, STANDARD Routine 04/18/2022 10:48 AM EST Type 2 diabetes mellitus without complication, without long-term current use of insulin (CMS/HCC) LIQUID-BASED PAP TEST Routine 11/27/2021 12:00 AM EDT from Last 3 Months or Most Recently Relevant to Health Maintenance Results * (ABNORMAL) POCT HGB A1C (06/30/2024 11:31 AM EDT) Hemoglobin A1C 6.6(A) 4.0 - 6.0 % QC Media Lot # [id number] Lot# Expiration Date Blood 06/30/2024 11:3 1 AM EDT Breanne Fermin MD POINT OF CARE TEST ENTER/EDIT ORDERABLES Final Result * (ABNORMAL) POCT Glucose (06/30/2024 11:30 AM EDT) Glucose Blood, POC 267(A) 60 - 200 mg/dL QC Media Lot # [id number] Lot# Expiration Date 91,425 Blood Capillary blood specimen / Unknown 06/30/2024 11:30 AM EDT Breanne Fermin MD POINT OF CARE TEST ENTER/EDIT ORDERABLES Final Result * (ABNORMAL) Bacterial Vaginosis (06/17/2024 11:00 AM EDT) TRICHOMONAS VAGINALIS DETECTION BY PCR NOT DETECTED Not Detect [facility] BACTERIAL VAGINOSIS DETECTION BY PCR POSITIVE(A) Negative [facility] Comment:The BV organism targ ets of the Xpert Xpress MVP test can becommensal in women; Xpert Xpress MVP positive results forbacterial vaginosis should be considered in conjunction withother clinical and patient information to determine thedisease status. Organisms that are not detected by the XpertXpress MVP test have also been reported to be associatedwith BV and aerobic vaginitis.The Xpert Xpress MVP test performance has not been evaluatedin patients under the age of 14. KRISTEL GROUP DETECTION BY PCR DETECTED(A) Not Detect [facility] Kristel glab krusei PCR NOT DETECTED Not Detect [facility] 06/17/2024 11:0 0 AM EDT 06/17/2024 4:26 PM EDT us Generic External Data Provider LAB MICROBIOLOGY - GENERAL ORDERABLES Final Result [facility] [address] [place] [phone] * (ABNORMAL) Chlamydia/N. Gonorrhoeae RNA, TMA, Urogenitial (06/17/2024 11:00 AM EDT) CT PCR DETECTED(A) Not Detect. [facility] Comment:Detected results may be observed after successful antibiotictreatment due to target nucleic acids from residualnon-viable chlamydia. As with many diagnostic tests, resultsfrom the Xpert CT/NG assay should be interpreted inconjunction with other laboratory and clinical dataavailable to the clinician.Xpert CT/NG performance has not been evaluated in patientsless than 14 years of age. The assay should not be used forthe evaluationof suspected sexual abuse or for other medico- legalindications. Additional testing is recommended inany circumstance when false positive or false negativeresults could lead to adverse medical, social orpsychological consequences.These results must be reported by the ordering clinician orclinical facility to the [facility] [place] required by state law. NG PCR NOT DETECTED Not Detect. [facility] Comment:A not detected test result does not exclude the possibilityof infection because test results can be affected byimproper specimen collection, concurrent antibiotic therapy,or the number of organisms in the specimen which may bebelow the sensitivity of the test. As with many diagnostictests, results from the Xpert CT/NG assay should beinterpreted in conjunction with other laboratory andclinical data available to the clinician.Xpert CT/NG performance has not been evaluated in patientsless than 14 years of age. The assay should not be used forthe evaluationof suspected sexual abuse or for other medico-legalindications. Additional testing is recommended in anycircumstance when false positive or false negative resultscould lead to adverse medical, social or psychologicalconsequences. 06/17/2024 11:0 0 AM EDT 06/17/2024 4:26 PM EDT Narrative [facility] - 06/17/2024 8:48 PM EDT Vaginal us Generic External Data Provider LAB MICROBIOLOGY - GENERAL ORDERABLES Final Result [facility] [address] [place] [phone] * CTA Head Neck w/ and w/o Contrast (04/09/2024 1:40 PM EST) Anatomical Region Laterality Modality Head, Neck Computed Tomogra phy Historical Provider MD CARDOSO CT PROCEDURES Final R esult * Hepatitis C Antibody with Reflex to HCV, RNA, Quantitative, Real-Time PCR (08/29/2023 3:00 PM EDT) Hepatitis C Antibody Nonreactive Nonreactive [facility] Comment:Antibodies to HCV no t detected; does not exclude early acuteHCV infection. Blood Venous blood specimen / Unknown 08/29/2023 3:00 PM EDT 08/29/2023 5:32 PM EDT Breanne Fermin MD LAB BLOOD ORDERABLES Final Re sult Performing Organization Address [facility] Co de Phone Number [facility] [address] [place] [address] [phone] * HIV-1/2 Antigen and Antibodies, Fourth Generation, with Reflexes (08/29/2023 3:00 PM EDT) [facility] HIV AB/AG Nonreactive Nonreactive [facility] Comment:HIV-1 p24 Ag and/or HIV-1/HIV-2 Ab not detected.A test result that is nonreactive does not exclude thepossibility of exposure to or infection with HIV-1 and/orHIV-2. Nonreactive results in this assay for individualswith prior exposure to HIV-1 and/or HIV-2 may be due toantigen and antibody levels that are below the limit ofdetection of this assay.The Hobby HIV Ag/Ab Combo assay result andsupplemental assay results should be interpreted inconjunction with the patient's clinical presentation,history and other laboratory results. If the results areinconsistent with clinical evidence, additional testing issuggested to confirm the result. Blood Venous blood specimen / Unknown 08/29/2023 3:00 PM EDT 08/29/2023 5:32 PM EDT Breanne Fermin MD LAB BLOOD ORDERABLES Final Re sult Performing Organization Address [facility]/ZIP Co de Phone Number [facility] [address] [place] [address] [phone] * BI Mammogram Screening Tomosynthesis Bilateral (11/01/2022 10:40 AM EDT) Anatomical Region Laterality Modality Breast Bilateral Mammography 11/01/2022 10:4 0 AM EDT Narrative 11/18/2022 8:00 AM EDT ? [facility] ? [address] ?[place] [address] ? Mammography Report ? Signed ? Patient: Fung,Dolores L ?MR#: [id number] ?? [id number] ? : 1980 ?Acct:[id number] ? Age/Sex: 42 / F ?ADM Date: 11/01/22 ? Loc: HO.MAMMO ? Attending Dr: Breanne Fermin MD ? Ordering Physician: Kamille Watkins CNM ?Results: 2Beni ?? gn Findings ? Date of Service: 11/01/22 ?Follow Up: 1 Year From Orig ?? inal Mammogram ? Procedure(s): MM tomosynthesis screening BI ?? Accession Number(s): [id number] ? cc: Breanne Fermin MD; Kamille Watkins [...] 0756 ? DD/ 1040 ? TD/TT: ? Electronic Scanner Operator: ? Procedure Note Donpaolaradhakera, Image - 11/18/2022 [facility] [address] [place] [address] Mammography Report Signed Patient: Dolores Fugn LMR#: [id number] : 1980Acct:[id number] Age/Sex: 42 / FADM Date: 11/01/22 Loc: KATHERINEO Attending Dr: Breanne Fermin MD Ordering Physician: Kamille Watkinsesults: 2Beni gn Findings Date of Service: 11/01/22Follow Up: 1 Year From Orig inal Mammogram Procedure(s): MM tomosynthesis screening BI Accession Number(s): [id number] cc: Breanne Fermin MD; Kamille Watkins CNM [...] in OV> 11/18/22 0756 DD/ 1040 TD/TT: Electronic Scanner Operator: [facility] External Provider IMG BI PROCEDURES Final Result * (ABNORMAL) Lipid Panel, Standard (04/18/2022 10:48 AM EST) Cholesterol, Total 155 <200 mg/dL [employer] [place] [facility] HDL Cholesterol 29(L) > OR = 50 mg/dL [employer] [facility] [place] [facility] Triglycerides 281(H) <150 mg/dL [employer] Comment: If a non-fasting specimen was collected, consider repeat triglyceride testing on a fasting specimen if clinically indicated. Devin et al. J. of Clin. Lipidol. 2015;9:129-169. LDL Cholesterol 89 mg/dL (calc) [employer] Comment: Reference range: <100 Desirable range <100 mg/dL for primary prevention; ?? <70 mg/dL for patients with CHD or diabetic patients with > or = 2 CHD risk factors. LDL-C is now calculated using the Bright-Darden calculation, which is a validated novel method providing better accuracy than the Friedewald equation in the estimation of LDL-C. Bright SS et al. CATRINA. 2013;310(19): 0564-8940 (http://education.Next Caller.Revl/faq/GTN821) Chol/HDLC Ratio 5.3(H) <5.0 (calc) [employer] [place] [facility] Non-HDL Cholesterol 126 <130 mg/dL (calc) [employer] [place] [facility] Comment: For patients with diabetes plus 1 major ASCVD risk factor, treating to a non-HDL-C goal of <100 mg/dL (LDL-C of <70 mg/dL) is considered a therapeutic option. Blood Venous blood specimen / Unknown 04/18/2022 10:48 AM EST 04/18/2022 10:49 AM EST Narrative [facility] - 04/19/2022 7:54 AM EST FASTING:YES FASTING: YES Breanne Fermin MD LAB BLOOD ORDERABLES Final [facility] Organization Address City/State/ZIP Co de Phone Number [facility] [address] [facility], [facility], [place] [phone] [employer] [place] [employer] [address] [facility], ([address]) [place] [address] * LIQUID-BASED PAP TEST (11/27/2021 12:00 AM EDT) Swab Historical Provider LAB CYTOLOGY ORDERABLES F inal Result from Last 3 Months or Most Recently Relevant to Health Maintenance Insurance [employer] Care Teams Looping Inspector Relationship Specialty Start Date End Date Breanne Fermin MD [address] [place] [phone] PCP - General Internal Medicine 05/02/22
--- OUTSIDE RECORDS SUMMARY | 2024-06-30 13:07 | XMS_ITS | Encounter Summary ---
Author Organization [employer] Address [address] [place] [address] [facility] [place] [address] Care Team Providers Care Research Spec Name Role Phone Breanne Fermin MD Primary Care Provider [phone] Reason for Referral * Imaging (Urgent) - Authorized Specialty Diagnoses / Procedures Referred By Contac t Referred To Contact Radiology Diagnoses Thyroid nodule Procedures US Thyroid Breanne Fermin MD [address] [place] [address] Phone: tel: fax: [address] Phone: tel: fax: Referral ID Status Reason Start Date Expiration Date V isits Requested Visits Authorized [id number] Authorized 06/30/2024 06/30/2025 1 1 Encounter Details Date Type Department Care Team (Late st Contact Info) Description 06/30/2024 11:15 AM EDT Office Visit [facility] MED & PEDS [address] [place], [place] [phone] Breanne Fermin MD [address] [place], [place] [phone] Thyroid nodule (Primary Dx); Right hand weakness; Diabetes mellitus, new onset (CMS/HCC); Type 2 diabetes mellitus without complication, without long-term current use of insulin (CMS/HCC) Social History Tobacco Use Types Packs/Day Years [...] PM EST documented as of this encounter Last Filed Vital Signs Vital Sign Reading Time Taken Comments Blood Pressure 109/69 06/30/2024 10:53 AM EDT Pulse 88 06/30/2024 10:53 AM EDT Temperature - - Respiratory Rate 20 06/30/2024 10:53 AM EDT Oxygen Saturation 99% 06/30/2024 10:53 AM EDT Inhaled Oxygen Concentration - - Weight 61.2 kg (135 lb) 06/30/2024 10:53 AM EDT Height 156.2 cm (5' 1.5 ) 06/30/2024 10:53 AM ED T Body Mass Index 25.09 06/30/2024 10:53 AM EDT documented in this encounter Progress Notes * Breanne Fermin MD - 06/30/2024 11:15 AM EDT Subjective Patient ID: Dolores Fung is a 44 y.o. female who presents for follow-up. 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 Patient states tookthe antibiotic entirely. Denies any vaginal symptoms today. Her A1c is 6.6 and she takes metformin 1000 mg twice daily. She was seen by Dr. Cano for a follow-up [facility] ER visit in March due toright hand weakness and numbness. Patient had abnormal CT of head and CT angiogram of brain but dueto persistent right middle finger numbness and tingling Dr. Cano ordered a brain MRI. Patient is scheduled for it but it has not been done yet. 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 No history of blood clots. Patient thinks that her mother may have had a stroke but is unsure. Patient is currently on 81 mg daily of aspirin.She is also here because the CT angiogram revealed suspicious thyroid nodule and needs further evaluation. Review of Systems Constitutional: Negative for activity change, chills, fever and unexpected weight change. Respiratory: Negative for cough, shortness of breath and wheezing. Cardiovascular: Negative for chest pain, palpitations and leg swelling. Gastrointestinal: Negative for abdominal pain and blood in stool. Endocrine: Negative for polydipsia and polyuria. Genitourinary: Negative for decreased urine volume, difficulty urinating, dysuria and hematuria. Musculoskeletal: Negative for arthralgias and gait problem. Skin: Negative for color change and rash. Neurological: Negative for dizziness, tremors, syncope, speech difficulty, weakness, light-headedness and headaches. Hematological: Negative for adenopathy. Psychiatric/Behavioral: Negative for dysphoric mood, hallucinations, sleep disturbance and suicidalideas. The patient is not nervous/anxious. Objective BP 109/69 (BP Location: Left arm, Patient Position: Sitting, BP Cuff Size: Adult) Pulse88 Resp 20 Ht 5' 1.5 (1.562 m) Wt 135 lb (61.2 kg) SpO2 99% BMI 25.09 kg/m?? Physical Exam Constitutional: General: She is not in acute distress. Appearance: Normal appearance. She is not ill-appearing. HENT: Head: Normocephalic. Right Ear: Tympanic membrane and ear canal normal. Left Ear: Tympanic membrane and ear canal normal. Nose: Nose normal. Mouth/Throat: Mouth: Mucous membranes are moist. Pharynx: No oropharyngeal exudate or posterior oropharyngeal erythema. Eyes: Extraocular Movements: Extraocular movements intact. Conjunctiva/sclera: Conjunctivae normal. Pupils: Pupils are equal, round, and reactive to light. Neck: Thyroid: No thyromegaly or thyroid tenderness. Cardiovascular: Rate and Rhythm: Normal rate and regular rhythm. Pulses: Normal pulses. Heart sounds: Normal heart sounds. Pulmonary: Effort: Pulmonary effort is normal. No respiratory distress. Breath sounds: Normal breath sounds. Abdominal: Palpations: Abdomen is soft. Musculoskeletal: General: Normal range of motion. Cervical back: Normal range of motion. Lymphadenopathy: Cervical: No cervical adenopathy. Skin: General: Skin is warm. Capillary Refill: Capillary refill takes less than 2 seconds. Neurological: General: No focal deficit present. Mental Status: She is alert and oriented to person, place, and time. Psychiatric: Mood and Affect: Mood normal. Behavior: Behavior normal. Thought Content: Thought content normal. Judgment: Judgment normal. Assessment/Plan Diagnoses and all orders for this visit: Thyroid nodule Comments: Questionable thyroid nodule on CT angiogram. Labs for TFTs and thyroid ultrasound ordered today. Call with results. Follow-up in 3 months with me given. Orders: - TSH W/Reflex to FT4; Future - Thyroid Peroxidase Antibodies; Future - US Thyroid; Future Right hand weakness Comments: Advised to not miss brain MRI scheduled for her. Continue aspirin daily. Hypercoagulability workup started today. Call with results. Orders: - JONNY Screen,IFA, with Reflex to Titer and Pattern; Future - CBC auto differential; Future - C-reactive Protein; Future - Sed Rate by Modified Westergren; Future - Hepatic Function Panel; Future - Prothrombin Time-INR; Future - Lupus Anticoagulant Evaluation with Reflex; Future Diabetes mellitus, new onset (CMS/HCC) - POCT Glucose - POCT HGB A1C Type 2 diabetes mellitus without complication, without long-term current use of insulin (CMS/HCC) Comments: Dolores is recently diagnosed. Has strong fly hx plus gestational DM Hx. Incraesed dose of metformin to 1000 mg bid today, glucometer sent to pharmacy, declines f Orders: - metFORMIN (Glucophage) 1000 MG tablet; Take 1 tablet (1,000 mg) by mouth with breakfast and with evening meal. Other orders - metroNIDAZOLE (Metrogel) 0.75 % vaginal gel; Insert into the vagina at bedtime. documented in this encounter Plan of Treatment Upcoming Encounters Date Type Department Care Team (Late st Contact Info) Description 10/02/2024 10:00 AM EDT Office Visit [facility] [address] [place] [address] Breanne Fermin MD [address] [place], [place] [phone] Scheduled Orders Name Type Priority Associated Diagnoses Orde r Schedule TSH W/Reflex to FT4 Lab Routine Thyroid nodule Expected: 06/30/2024 (Approximate), Expires: 06/29/2025 Thyroid Peroxidase Antibodies Lab Routine Thyroid nodule Expected: 06/30/2024 (Approximate), Expires: 06/29/2025 US Thyroid Imaging Urgent Thyroid nodule Expected: 06/30/2024 (Approximate), Expires: 06/29/2025 JONNY Screen,IFA, with Reflex to Titer and Pattern Lab Routine Right hand weakness Expected: 06/30/2024 (Approximate), Expires: 06/30/2025 CBC auto differential Lab Routine Right hand weakness Expected: 06/30/2024 (Approximate), Expires: 06/30/2025 C-reactive Protein Lab Routine Right hand weakness Expected: 06/30/2024 (Approximate), Expires: 06/30/2025 Sed Rate by Modified Westergren Lab Routine Right hand weakness Expected: 06/30/2024, Expires: 06/30/2025 Hepatic Function Panel Lab Routine Right hand weakness Expected: 06/30/2024 (Approximate), Expires: 06/30/2025 Prothrombin Time-INR Lab Routine Right hand weakness Expected: 06/30/2024, Expires: 06/30/2025 Lupus Anticoagulant Evaluation with Reflex Lab Routine Right hand weakness Expected: 06/30/2024 (Approximate), Expires: 06/30/2025 documented as of this encounter Procedures Procedure Name Priority Date/Time Associated Diagnosis Comments POCT GLYCATED HEMOGLOBIN, TOTAL Routine 06/30/2024 11:31 AM EDT Diabetes mellitus, new onset (CMS/HCC) POCT GLUCOSE Routine 06/30/2024 11:30 AM EDT Diabetes mellitus, new onset (CMS/HCC) documented in this encounter Results * (ABNORMAL) POCT HGB A1C (06/30/2024 11:31 AM EDT) Hemoglobin A1C 6.6(A) 4.0 - 6.0 % QC Media Lot # [id number] Lot# Expiration Date 1,227 Blood 06/30/2024 11:3 1 AM EDT us Breanne Fermin MD POINT OF CARE TEST ENTER/EDIT ORDERABLES Final Result * (ABNORMAL) POCT Glucose (06/30/2024 11:30 AM EDT) Glucose Blood, POC 267(A) 60 - 200 mg/dL QC Media Lot # [id number] Lot# Expiration Date 91,425 Blood Capillary blood specimen / Unknown 06/30/2024 11:30 AM EDT us Breanne Fermin MD POINT OF CARE TEST ENTER/EDIT ORDERABLES Final Result documented in this encounter Visit Diagnoses Diagnosis Thyroid nodule- Primary Nontoxic uninodular goiter Right hand weakness Muscle weakness (generalized) Diabetes mellitus, new onset (CMS/HCC) Type 2 diabetes mellitus without complication, without long-term current use of insulin (CMS/[facility]) documented in this encounter Additional Health Concerns Assessment Noted Time PHQ-9 Depression Total Score: 0 08/29/19 24 2:28 PM EDT documented as of this encounter Care Teams Research Spec Relationship Specialty Start Date End Date Breanne Fermin MD [address] [place] [address] PCP - General Internal Medicine 05/02/22 documented as of this encounter
--- OUTSIDE RECORDS SUMMARY | 2024-06-30 13:07 | XMS_ITS | Encounter Summary ---
Author Organization [employer] Address [address] [place] [address] 7t [place] [address] Care Team Providers Care Building Cleaner Name Role Phone Breanne Fermin MD Primary Care Provider Encounter Details Date Type Department Care Team ([facility] Contact Info) Description 01/26/2024 Orders Only [facility] CHC MED & PEDS [address] [place], [place] [phone] Bill Albarran MD [address] [place] [address] Bacterial vaginosis (Primary Dx) Social History Tobacco [...] Description 10/02/2024 10:00 AM EDT Office Visit [facility] MED & PEDS [address] [place] [address] Breanne Fermin MD [address] [place] [address] documented as of this encounter Visit Diagnoses Diagnosis Bacterial vaginosis- Primary Unspecified vaginitis and vulvovaginitis documented in this encounter Additional Health Concerns Assessment Noted Time PHQ-9 Depression Total Score: 0 08/29/19 24 2:28 PM EDT documented as of this encounter Care Teams Building Cleaner Relationship Specialty Start Date End Date Breanne Fermin MD [address] [place] [address] PCP - General Internal Medicine 05/02/22 documented as of this encounter
--- OUTSIDE RECORDS SUMMARY | 2024-06-30 13:07 | XMS_ITS | Encounter Summary ---
Author Organization [employer] Address [address] [place] [address] 7t [place] [address] Care Team Providers Care Hot Roll Inspector Name Role Phone Breanne Fermin MD Primary Care Provider [phone] Encounter Details Date Type Department Care Team (Latest Contact Info) Description 06/30/2024 Travel Social History Tobacco Use Types Packs/Day Years [...] Upcoming Encounters Date Type Department Care Team ([facility] st Contact Info) Description 10/02/2024 10:00 AM EDT Office Visit [facility] MED & PEDS [address] [place] [address] Breanne Fermin MD [address] [place] [address] documented as of this encounter Visit Diagnoses Not on filedocumented in this encounter Additional Health Concerns Assessment Noted Time PHQ-9 Depression Total Score: 0 08/29/19 24 2:28 PM EDT documented as of this encounter Care Teams Hot Roll Inspector Relationship Specialty Start Date End Date Breanne Fermin MD [address] [place] [address] PCP - General Internal Medicine 05/02/22 documented as of this encounter
--- OUTSIDE RECORDS SUMMARY | 2024-06-30 13:07 | XMS_ITS | Encounter Summary ---
Author Organization [employer] Address [address] [facility] 7t [place] [address] Care Team Providers Care Movie Shot Camera Operator Name Role Phone Breanne Fermin MD Primary Care Provider [phone] Encounter Details Date Type Department Care Team ([facility] st Contact Info) Description 06/16/2024 Orders Only [facility] CHC MED & PEDS [address] [place], [place] [phone] ProviderYvette MD Social History Tobacco Use Types [...] Description 10/02/2024 10:00 AM EDT Office Visit [facility] MED & PEDS [address] [place], [place] [phone] Breanne Fermin MD [address] [place] [address] documented as of this encounter Procedures Procedure [...] documented as of this encounter Care Teams Movie Shot Camera Operator Relationship Specialty Start Date End Date Breanne Fermin MD [address] [place] [address] PCP - General Internal Medicine 05/02/22 documented as of this encounter
--- OUTSIDE RECORDS SUMMARY | 2024-06-30 13:07 | XMS_ITS | Encounter Summary ---
Author Organization [employer] Address [address] [place] [address] 7t [place] [address] Care Team Providers Care Dyed Raw Stock Blower Feeder Name Role Phone Breanne Fermin MD Primary Care Provider [phone] Encounter Details Date Type Department Care Team ([facility] st Contact Info) Description 04/19/2022 Abstract [facility] CHC MED & PEDS [address] [place], [place] [phone] Ana Ashford MD [address] [place] [address] Social History Tobacco Use Types Packs/Day Years [...] Description 10/02/2024 10:00 AM EDT Office Visit [facility] MED & PEDS [address] [place] [address] Breanne Fermin MD [address] [place] [address] documented as of this encounter Visit Diagnoses Not on filedocumented in this encounter Additional Health Concerns Assessment Noted Time PHQ-9 Depression Total Score: 0 04/19/19 10:37 AM EST documented as of this encounter Care Teams Dyed Raw Stock Blower Feeder Relationship Specialty Start Date End Date Breanne Fermin MD [address] [place] [address] PCP - General Internal Medicine 05/02/22 documented as of this encounter
[2024-06-30 14:14] LABS: MANUAL DIFF FLAG NO
[2024-06-30 14:18] LABS: Basophils Absolute Auto 0.1 X10*3/uL (0.0-0.2); Eosinophils Absolute Auto 0.2 X10*3/uL (0.0-0.4); Eosinophils Percent Auto 2.2 % (0-4); Hemoglobin 10.2 g/dl (12.0-16.0); Imm Gran Abs Auto 0.02 X10*3/uL (0.00-0.03); Imm Gran Pct Auto 0.2 % (0.0-0.4); Lymphocytes Absolute Auto 2.9 X10*3/uL (1.2-4.9); Mean Corpuscular Hemoglobin 22.2 pg (27.0-33.0); Mean Corpuscular Volume 74.1 fL (80.0-98.0); Mean Platelet Volume 10.5 fL (9.4-12.3); Monocytes Absolute Auto 0.6 X10*3/uL (0.1-1.2); Monocytes Percent Auto 6.9 % (2-11); Neutrophils Absolute Auto 5.4 x10*3/uL (2.0-8.3); Neutrophils Percent Auto 58.7 % (45-73); Platelet Count 304 X10*3/uL (160-400); Red Blood Count 4.59 X10*6/uL (4.20-5.50); Red Cell Distribution Width 18.5 % (11.0-16.0); White Blood Count 9.2 X10*3/uL (4.8-10.8)
[2024-06-30 14:34] LABS: INTERNATIONAL NORM RATIO 0.9 (0.9-1.1); Prothrombin Time 9.9 SEC (10.9-12.4)
[2024-06-30 14:56] LABS: Alanine Aminotransferase 19 U/L (0-31); Albumin Level 4.1 g/dL (3.5-5.0); Alkaline Phosphatase 98 U/L (39-117); Aspartate Amino Transferase 26 U/L (5-31); Bilirubin Direct < 0.2 mg/dL (0.0-0.5); Bilirubin Total 0.2 mg/dL (0.0-1.0); C Reactive Protein 0.46 mg/dL (< or = 0.50); Total Protein 7.5 g/dL (6.5-8.0)
[2024-06-30 15:01] LABS: TSH reflex Free T4 0.47 uIU/mL (0.32-4.0)
[2024-06-30 15:04] LABS: Erythrocyte Sedimentation Rate 18 MM/HR (0-20)
[2024-07-01 12:03] LABS: Anti Nuclear Antibody Screen NEGATIVE (NEGATIVE)
[2024-07-01 18:59] LABS: Thyroid Peroxidase Antibodies 1 IU/mL (<9)
== END 2024-06-30 11:36 | disposition home or self-care (01) ==
LOC: HO.CHCLDS 11:35
PROVIDERS: Visit Provider Pediatrics
DX: R29.898 Other symptoms and signs involving the musculoskeletal system (principal); E04.1 Nontoxic single thyroid nodule
CPT/HCPCS: 36415; 80076; 84443; 85025; 85610; 85652; 86038; 86140; 86376

== ENCOUNTER 2024-07-09 10:54 | Outpatient (REF) | payer MEDICAID, SELFPAY ==
--- NOTE | ~2024-07-09 | US_ITS ---
EXAMINATION: US THYROID CLINICAL INFORMATION: Probable multinodular goiter. COMPARISON: None available. TECHNIQUE: Linear transducer grayscale and color Doppler examination with attention to the region of the thyroid. FINDINGS: SIZE: Measurements of the thyroid lobes and nodules are given in sagittal, anteroposterior and transverse dimensions respectively. Right Thyroid Lobe: 4.7 x 2.0 x 2.1 cm, volume 9.9 mL. Parenchyma: The gland echotexture is normal. Thyroid vascularity is normal. Left Thyroid Lobe: 5.1 x 2.2 x 1.6 cm, volume 0.2 mL. Parenchyma: The gland echotexture is normal. Thyroid vascularity is normal. Isthmus: 0.5 cm in maximum AP dimension. Estimated total number of nodules greater than or equal to 1 cm: 0. Human Resources Supervisor nodules are described as follows: 1. Location: Midportion right lobe. Size: 0.5 x 0.4 x 0.5 cm, volume 0.06 mL. Nodule characteristics: Composition: Solid/almost completely solid (2). Echogenicity: Isoechoic (1). Shape: Not taller than wide (0). Margins: Smooth (0). Echogenic Foci: None (0). ACR TI-RADS total points: 3 ACR TI-RADS category: 3 2. Location: Midportion, right lobe. Size: 0.6 x 0.5 x 0.6 cm, volume 0.1 mL. Nodule characteristics: Composition: Solid (2). Echogenicity: Hypoechoic (2). Shape: Not taller than wide (0). Margins: Smooth (0). Echogenic Foci: None (0). ACR TI-RADS total points: 4 ACR TI-RADS category: 4 US/US thyroid IMPRESSION: ACR TI RADS 3 and 4. 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 * TR1 (0 point) and TR2 (2 points): No FNA or follow up. * TR3 (3 points): FNA if more than or equal to 2.5 cm in maximum dimension, followup ultrasound in 1, 3 and 5 years if 1.5 to 2.4 cm in maximum dimension. * TR4 (4-6 points): FNA if more than or equal to 1.5 cm in maximum dimension, followup ultrasound in 1, 2, 3 and 5 years if 1 to 1.4 cm in maximum dimension. * TR5 (more than or equal to 7 points): FNA if more than or equal to 1 cm in maximum dimension, followup ultrasound every year for 5 years if 0.5 to 0.9 cm in maximum dimension. * TR3, TR4 or TR5 nodules that are below the size threshold for followup receive no follow up. Electronically signed by: Filemon Nunez MD 07/09/2024 11:58 AM EDT
--- OUTSIDE RECORDS SUMMARY | 2024-07-09 11:35 | XMS_ITS | Encounter Summary ---
Author Organization [employer] Address [address] [place] [address] 7t [place] [address] Care Team Providers Care Solid Waste Disposal Manager Name Role Phone Breanne Fermin MD Primary Care Provider [phone] Encounter Details Date Type Department Care Team ([facility] st Contact Info) Description 06/16/2024 Orders Only [facility] CHC MED & PEDS [address] [place], [place] [phone] Provider, MD Yvette Social History Tobacco Use Types Packs/Day Years [...] Description 10/02/2024 10:00 AM EDT Office Visit [facility] MED & PEDS [address] [place], [place] [phone] Breanne Fermin MD [address] [place] [address] documented as of this encounter Procedures Procedure [...] documented as of this encounter Care Teams Solid Waste Disposal Manager Relationship Specialty Start Date End Date Breanne Fermin MD [address] [place] [address] PCP - General Internal Medicine 05/02/22 documented as of this encounter
--- OUTSIDE RECORDS SUMMARY | 2024-07-09 11:36 | XMS_ITS | Encounter Summary ---
Author Organization [employer] Address [address] [place] [address] 7 [place] [address] Care Team Providers Care Senior Quality Analyst Name Role Phone Breanne Fermin MD Primary Care Provider [phone] Encounter Details Date Type Department Care Team ([facility] st Contact Info) Description 04/19/2022 Abstract [facility] CHC MED & PEDS [address] [place], [place] [phone] Ana Ashford MD [address] [place] [address] Social History Tobacco Use Types Packs/Day Years [...] Description 10/02/2024 10:00 AM EDT Office Visit [facility] MED & PEDS [address] [place] [address] Breanne Fermin MD [address] [place] [address] documented as of this encounter Visit Diagnoses Not on filedocumented in this encounter Additional Health Concerns Assessment Noted Time PHQ-9 Depression Total Score: 0 04/19/19 10:37 AM EST documented as of this encounter Care Teams Senior Quality Analyst Relationship Specialty Start Date End Date Breanne Fermin MD [address] [place] [address] PCP - General Internal Medicine 05/02/22 documented as of this encounter
--- OUTSIDE RECORDS SUMMARY | 2024-07-09 11:36 | XMS_ITS | Clinical Summary ---
Author Organization [facility] Address [address] [place] [address] Phone Care Team Providers Care Airflight Attendants Supervisor Name Role Phone Breanne Fermin MD Primary Care Provider [phone] Allergies No known active allergies Surgical History Surgery Date Site/Laterality Comments OTHER [...] Date/Time Associated Diagnosis Comments ECG ANNOTATED 04/13/2024 BASIC METABOLIC PANEL STAT 04/09/2024 10:33 AM EST from Last 3 Months or Most Recently Relevant to Health Maintenance Results * ECG-Annotated (04/13/2024) us Provider Onbase MD ECG ORDERABLES Final Result * (ABNORMAL) Basic metabolic panel (04/09/2024 10:33 AM EST) Sodium 139 133 - 145 mmol/L LAB CHEMISTRY METHOD 04/09/2024 11:36 AM [facility] Potassium 3.7 3.5 - 5.5 mmol/L LAB CHEMISTRY METHOD 04/09/2024 11:36 AM [facility] Chloride 107 96 - 110 mmol/L LAB CHEMISTRY METHOD 04/09/2024 11:36 AM [facility] CO2 25 21 - 32 mmol/L LAB CHEMISTRY METHOD 04/09/2024 11:36 AM [facility] Anion Gap 7 3 - 11 LAB CHEMISTRY METHOD 04/09/2024 11:36 AM [facility] Glucose 102(H) 70 - 100 mg/dL LAB CHEMISTRY METHOD 04/09/2024 11:36 AM [facility] BUN 5 5 - 25 mg/dL LAB CHEMISTRY METHOD 04/09/2024 11:36 AM [facility] Creatinine 0.52 0.50 - 1.10 mg/dL LAB CHEMISTRY METHOD 04/09/2024 11:36 AM [facility] eGFR 118 >=60 mL/min/1. 73m2 LAB CHEMISTRY METHOD 04/09/2024 11:36 AM [facility] Comment:Calculation based on the??Chronic Kidney Disease Epidemiology Collaboration (CKD-EPI) equation refit??without adjustment for race. BUN/Creatinine Ratio 9.6 LAB CHEMISTRY METHOD 04/09/2024 11:36 AM [facility] Calcium 9.6 8.5 - 10.5 mg/dL LAB CHEMISTRY METHOD 04/09/2024 11:36 AM [facility] Blood Venous blood specimen / Unknown Venipuncture / Unknown 04/09/2024 10:33 AM EST 04/09/2024 10:43 AM EST us Layton Ragland DO LAB BLOOD ORDERABLES Final Res ult [facility] [address] [place] [address], [place] [phone] from Last 3 Months or Most Recently Relevant to Health Maintenance Insurance MEDICAID - [place] Care Teams Airflight Attendants Supervisor Relationship Specialty Start Date End Date Breanne Fermin MD [address] [place] [id number] PCP - General Internal Medicine 06/16/24
--- OUTSIDE RECORDS SUMMARY | 2024-07-09 11:36 | XMS_ITS | Encounter Summary ---
Author Organization [employer] Address [address] [place] [address] 7 [place] [address] Care Team Providers Care Pl Sql Programmer Name Role Phone Breanne Fermin MD Primary Care Provider [phone] Encounter Details Date Type Department Care Team ([facility] Contact Info) Description 01/26/2024 Orders Only [facility] CH[facility] MED & PEDS [address] [place], [place] [phone] Bill Albarran MD [address] [place] [address] Bacterial vaginosis (Primary Dx) Social History Tobacco [...] 10:00 AM EDT Office Visit [facility] MED & PEDS [address] [place] [address] Breanne Fermin MD [address] [place] [address] documented as of this encounter Visit Diagnoses Diagnosis Bacterial vaginosis- Primary Unspecified vaginitis and vulvovaginitis documented in this encounter Additional Health Concerns Assessment Noted Time PHQ-9 Depression Total Score: 0 08/29/19 24 2:28 PM EDT documented as of this encounter Care Teams Pl Sql Programmer Relationship Specialty Start Date End Date Breanne Fermin MD [address] [place] [address] PCP - General Internal Medicine 05/02/22 documented as of this encounter
--- OUTSIDE RECORDS SUMMARY | 2024-07-09 11:36 | XMS_ITS | Encounter Summary ---
Author Organization [employer] Address [address] [place] [address] Care Team Providers Care Sec Accountant Name Role Phone Breanne Fermin MD Primary Care Provider [phone] Reason for Visit * Reason Onset Date Comments Referral 01/23/2023 Encounter Details Date Type Department Care Team ([facility] Contact Info) Description 01/23/2023 Telephone [facility] MED & PEDS [address] [place], [place] [phone] Breanne Fermin MD [address] [place] [address] Referral Social History Tobacco Use Types Packs/Day [...] 03/20/2023 3:52 PM EST Referral sent to [address] [place] [address] per pt request * Telephone Encounter - Farrah Gomez - 01/23/2023 11:27 AM EST Tc from pt requesting a different location for obstetrics/Gynecology referral. Location: [address] [place] [address] Date: n/a Time: n/a Specialty: PATIENT MANAGER documented in this encounter Plan of Treatment Upcoming Encounters Date Type Department Care Team ([facility] Contact Info) Description 10/02/2024 10:00 AM EDT Office Visit [facility] MED & PEDS [address] [place] [address] Breanne Fermin MD [address] [place] [address] documented as of this encounter Visit Diagnoses Not on filedocumented in this encounter Additional Health Concerns Assessment Noted Time PHQ-9 Depression Total Score: 0 04/19/19 10:37 AM EST documented as of this encounter Care Teams Sec Accountant Relationship Specialty Start Date End Date Breanne Fermin MD [address] [place] [address] PCP - General Internal Medicine 05/02/22 documented as of this encounter
--- OUTSIDE RECORDS SUMMARY | 2024-07-09 11:36 | XMS_ITS | Encounter Summary ---
Author Organization [employer] Address [address] [place] [address] 7 [place] [address] Care Team Providers Care Hooker Up Name Role Phone Breanne Fermin MD Primary Care Provider [phone] Reason for Visit * Reason Onset Date Comments Lab Orders 07/07/2024 Results 07/07/2024 Encounter Details Date Type Department Care Team ([facility] st Contact Info) Description 07/07/2024 Results Follow-Up [facility] [address] [place] [address] Maricel Rosenthal, SOLOMON POCT Glucose, POCT HGB A1C, TSH W/Reflex to FT4, Additional followed-up results: 7 Social History Tobacco Use Types Packs/Day Years [...] encounter Miscellaneous Notes * Telephone Encounter - Maricel Rosenthal RN - 07/07/2024 9:55 AM EDT TC placed to pt per below PCP message. Advised pt of benign labs except mild anemia that looks to be from iron deficiency. Advised pt PCP would like them to have further labs drawn before treating her. Pt reports they have iron pills from when they were previously prescribed. Pt reports they do nottake them every day. Advised pt to have labs completed, and PCP will treat based on results. Pt verbalized understanding. Message forwarded to PCP. ----- Message from Breanne Fermin MD sent at 07/06/2024 2:21 PM EDT ----- Please inform Dolores that her labs are all benign except mild anemia that looks to be from iron deficiency but I just ordered a few more labs to confirm this before treating her. No fasting required for her to get labs drawn. Please have her get these labs done when possible.Thanks ----- Message ----- From: Arlette Hopkins MA Sent: 06/30/2024 11:31 AM EDT To: Breanne Fermin MD documented in this encounter Plan of Treatment Upcoming Encounters Date Type Department Care Team (Late st Contact Info) Description 10/02/2024 10:00 AM EDT Office Visit [facility] [address] [place] [address] Breanne Fermin MD [address] [place] [address] documented as of this encounter Visit Diagnoses Not on filedocumented in this encounter Additional Health Concerns Assessment Noted Time PHQ-9 Depression Total Score: 0 08/29/19 24 2:28 PM EDT documented as of this encounter Care Teams Hooker Up Relationship Specialty Start Date End Date Breanne Fermin MD [address] [place] [address] PCP - General Internal Medicine 05/02/22 documented as of this encounter
--- OUTSIDE RECORDS SUMMARY | 2024-07-09 11:36 | XMS_ITS | Encounter Summary ---
Author Organization [employer] Address [address] [place] [address] 7 [place] [address] Care Team Providers Care Dimension Quarry Supervisor Name Role Phone Breanne Fermin MD Primary Care Provider [phone] Encounter Details Date Type Department Care Team ([facility] Contact Info) Description 07/06/2024 Orders Only [facility] [address] [place], [place] [phone] Breanne Fermin MD [address] [place] [address] Microcytic anemia (Primary Dx) Social History Tobacco Use Types [...] Office Visit [facility] [address] [place] [address] Breanne Fermin MD [address] [place] [address] Scheduled Orders Name Type Priority Associated Diagnoses Orde r Schedule Ferritin Lab Routine Microcytic anemia Expected: 07/06/2024, Expires: 07/06/2025 Vitamin B12/Folate, Serum Panel Lab Routine Microcytic anemia Expected: 07/06/2024, Expires: 07/06/2025 Iron And Total Iron Binding Capacity Lab Routine Microcytic anemia Expected: 07/06/2024, Expires: 07/06/2025 documented as of this encounter Visit Diagnoses Diagnosis Microcytic anemia- Primary Unspecified iron deficiency anemia documented in this encounter Additional Health Concerns Assessment Noted Time PHQ-9 Depression Total Score: 0 08/29/19 24 2:28 PM EDT documented as of this encounter Care Teams Dimension Quarry Supervisor Relationship Specialty Start Date End Date Breanne Fermin MD [address] [place] [address] PCP - General Internal Medicine 05/02/22 documented as of this encounter
--- OUTSIDE RECORDS SUMMARY | 2024-07-09 11:36 | XMS_ITS | Clinical Summary ---
Author Organization [employer] Address [address] [place] [address] 7t [place] [address] Care Team Providers Care Marketing Intelligence Analyst Name Role Phone Breanne Fermin MD Primary Care Provider [phone] Allergies No known active allergies Medications Blood [...] 1 APPLICATORFUL VAGINALLY BEDTIME FOR 5 DAYS 06/19/19 25 2024 Discontinued(R eorder (will not trigger notification to Pharmacy)) Active Problems Problem Noted Date Diagnosed Date Diabetes mellitus, new onset 04/18/2022 H/O iron deficiency anemia 04/18/2022 Encounters Date Type Department Care Team Description 07/07/2024 Results Follow-Up [address] [address] Maricel Rosenthal RN POCT Glucose, POCT HGB A1C, TSH W/Reflex to FT4, Additional followed-up results: 7 07/06/2024 Orders Only [facility] [address] [place] [address] Breanne Fermin MD Microcytic anemia (Primary Dx) 06/30/2024 11:15 AM EDT Office Visit [facility] [address] [place] [address] Breanne Fermin MD Thyroid nodule (Primary Dx); Right hand weakness; Diabetes mellitus, new onset (CMS/HCC); Type 2 diabetes mellitus without complication, without long-term current use of insulin (CMS/HCC) 06/30/2024 Travel 06/23/2024 Patient Outreach [address] [address] Breanne Fermin MD Pre-visit Planning (Pre visit planning LVM ) 06/22/2024 Telephone [facility] [address] [place] [address] Breanne Fermin MD 06/17/2024 Orders Only GENERIC EXTERNAL DATA DEPARTMENT Provider, Generic External Data 06/16/2024 Orders Only [facility] [address] [place] [address] Yvette Saavedra MD 06/16/[address] [address] Breanne Fermin MD Appointment Request 05/01/2024 Population Health Risk Score Community [facility] (C3) Department [address] [place] [phone] Provider, Population Health Generic 04/27/2024 Telephone [facility] [address] [place], [place] [phone] Breanne Fermin MD recall 04/13/2024 1:00 PM EST Office Visit [facility] [address] [place], [place] [phone] Verna Cano MD Right hand weakness (Primary Dx); Multinodular thyroid 04/13/2024 Travel 04/13/2024 Telephone [facility] [address] [place], [place] [phone] Breanne Fermin MD Nurse Triage from Last 3 Months Family History Medical [...] Description 10/02/2024 10:00 AM EDT Office Visit [facility] [address] [place] [address] Breanne Fermin MD [address] [place], [place] [phone] Health Maintenance Due Date Last Done Comments Disability Screening 1980 Diabetes: Foot Exam 02/07/1990 Eye Exam 02/07/1990 Family Planning (PISQ) 02/07/1995 DTaP/Tdap/Td Vaccines (1 - Tdap) 02/07/1999 Diabetes: Urine Protein Screening 02/07/1999 Hepatitis B Vaccines (1 of 3 - 19+ 3-dose series) 02/07/1999 Pneumococcal Vaccine: Pediatrics (0 to 5 Years) and At-Risk Patients (6 to 49) Years) (1 of 2 - PCV) 02/07/1999 HPV/Cotest 02/07/2010 Lipid Panel 04/19/2023 04/18/2022 COVID-19 Vaccine ( - 2023- season) 2023 Influenza Vaccine (#1) 2023 Mammogram [...] Procedure Name Priority Date/Time Associated Diagnosis Comments PROTHROMBIN TIME-INR Routine 06/30/2024 11:38 AM EDT Right hand weakness HEPATIC FUNCTION PANEL Routine 11:38 AM EDT Right hand weakness SED RATE BY MODIFIED WESTERGREN Routine 06/30/2024 11:38 AM EDT Right hand weakness C-REACTIVE PROTEIN Routine 06/30/2024 11 :38 AM EDT Right hand weakness CBC WITH AUTO DIFFERENTIAL Routine 06/30/2024 11:38 AM EDT Right hand weakness JONNY SCREEN, IFA, W/REFL TITER AND PATTERN Routine 06/30/2024 11:38 AM EDT Right hand weakness THYROID PEROXIDASE ANTIBODIES Routine 06/30/2024 11:38 AM EDT Thyroid nodule TSH W/REFLEX TO FT4 Routine 06/30/2024 1 1:38 AM EDT Thyroid nodule POCT GLYCATED HEMOGLOBIN, TOTAL Routine 06/30/2024 11:31 AM EDT Diabetes mellitus, new onset (CMS/HCC) POCT GLUCOSE Routine 06/30/2024 11:30 AM EDT Diabetes mellitus, new onset (CMS/HCC) CHLAMYDIA/N. GONORRHOEAE RNA, TMA, UROGENITAL Routine 06/17/2024 11:00 AM EDT BACTERIAL VAGINOSIS PANEL Routine 06/17/2024 11:00 AM EDT HEPATITIS C AB W/REFL TO HCV RNA, [...] Recently Relevant to Health Maintenance Results * TSH W/Reflex to FT4 (06/30/2024 11:38 AM EDT) TSH reflex Free T4 0.47 0.32 - 4.0 uIU/mL [facility] Blood Venous blood specimen / Unknown 06/30/2024 11:38 AM EDT 06/30/2024 2:07 PM EDT us Breanne Fermin MD LAB BLOOD ORDERABLES Final Re sult [facility] [address] [place] [phone] * (ABNORMAL) CBC auto differential (06/30/2024 11:38 AM EDT) White Blood Count 9.2 4.8 - 10.8 X10*3/uL [facility] Red Blood Count 4.59 4.20 - 5.50 X10*6/uL [facility] Hemoglobin 10.2(L) 12.0 - 16.0 g/dl [facility] Hematocrit 34.0(L) 37.0 - 47.0 % [facility] Mean Corpuscular Volume 74.1(L) 80.0 - 98.0 fL [facility] Mean Corpuscular Hemoglobin 22.2(L) 27.0 - 33.0 pg [facility] Mean Corpuscular HGB Conc 30.0(L) 31.0 - 35.0 g/dl [facility] Red Cell Distribution Width 18.5(H) 11.0 - 16.0 % [facility] Platelet Count 304 160 - 400 X10*3/uL [facility] Mean Platelet Volume 10.5 9.4 - 12.3 fL [facility] Neutrophils Percent Auto 58.7 45 - 73 % [facility] Imm Gran Pct Auto 0.2 0.0 - 0.4 % [facility] Lymphocytes Percent Auto 31.0 20 - 40 % [facility] Monocytes Percent Auto 6.9 2 - 11 % [facility] Eosinophils Percent Auto 2.2 0 - 4 % [facility] Basophils Percent Auto 1.0 0 - 2 % [facility] NRBC Pct Auto 0.0 0.0 - 0.2 /100WBC [facility] Neutrophils Absolute Auto 5.4 2.0 - 8.3 x10*3/uL [facility] Imm Gran Abs Auto 0.02 0.00 - 0.03 X10*3/uL [facility] Lymphocytes Absolute Auto 2.9 1.2 - 4.9 X10*3/uL [facility] Monocytes Absolute Auto 0.6 0.1 - 1.2 X10*3/uL [facility] Eosinophils Absolute Auto 0.2 0.0 - 0.4 X10*3/uL [facility] Basophils Absolute Auto 0.1 0.0 - 0.2 X10*3/uL [facility] NRBC Abs Auto 0.000 0.0 - 0.012 X10*3/uL [facility] Blood Venous blood specimen / Unknown 06/30/2024 11:38 AM EDT 06/30/2024 2:07 PM EDT us Breanne Fermin MD LAB BLOOD ORDERABLES Final Re sult [facility] [address] [place] [phone] [phone] * Thyroid Peroxidase Antibodies (06/30/2024 11:38 AM EDT) Thyroid Peroxidase Antibodies 1 <9 IU/mL [facility] Comment:THIS TEST WAS PERFOR MED AT:[facility] [address] [phone] FREITAS MD Blood Venous blood specimen / Unknown 06/30/2024 11:38 AM EDT 06/30/2024 2:07 PM EDT Breanne Fermin MD LAB BLOOD ORDERABLES Final Re sult Performing Organization Address [facility] de Phone Number [facility] [address] [place] [phone] * Sed Rate by Modified Papi (06/30/2024 11:38 AM EDT) Pathologist [facility] Erythrocyte Sedimentation Rate 18 0 - 20 MM/HR [facility] Comment:Patients with polycy themia and many hemoglobin abnormalitiesmay have depressed sed rates whereas patients with anemiamay have elevated sed rates. Blood Venous blood specimen / Unknown 06/30/2024 11:38 AM EDT 06/30/2024 2:07 PM EDT Breanne Fermin MD LAB BLOOD ORDERABLES Final Re sult Performing Organization Address [facility] de Phone Number [facility] [address] [place] [phone] * (ABNORMAL) Prothrombin Time-INR (06/30/2024 11:38 AM EDT) Pathologist [facility] Prothrombin Time 9.9(L) 10.9 - 12.4 SEC [facility] INTERNATIONAL NORM RATIO 0.9 0.9 - 1.1 [facility] Comment:INTERNATIONAL NORMAL IZED RATIO (INR) REFERENCE RANGES Reference RangeFor patients not on anticoagulant therapy: 0.9 - 1.1INR ranges for oral anticoagulanttherapy:For prevention and treatment of venous thrombosis and pulmonary embolism: 2.0 - 3.0For acute myocardial infarction with aspirin therapy: 2.0 - 3.0For acute myocardial infarction without aspirin therapy: 3.0 - 4.0For patients with mechanical prosthetic heart valves: 2.5 - 3.5 Blood Venous blood specimen / Unknown 06/30/2024 11:38 AM EDT 06/30/2024 2:07 PM EDT Breanne Fermin MD LAB BLOOD ORDERABLES Final Re sult Performing Organization Address [facility]/ZIP Co de Phone Number [facility] [address] [place] [phone] * C-reactive Protein (06/30/2024 11:38 AM EDT) C Reactive Protein 0.46 < or = 0.50 mg/dL [facility] Blood Venous blood specimen / Unknown 06/30/2024 11:38 AM EDT 06/30/2024 2:07 PM EDT Breanne Fermin MD LAB BLOOD ORDERABLES Final Re sult Performing Organization Address [facility] Co de Phone Number [facility] [address] [place] [phone] * JONNY Screen,IFA, with Reflex to Titer and Pattern (06/30/2024 11:38 AM EDT) Anti Nuclear Antibody Screen NEGATIVE NEGATIVE [facility] Comment:JONNY IFA is a first l ine screen for detecting thepresence of up to approximately 150 autoantibodies invarious autoimmune diseases. A negative JONNY IFA resultsuggests an JONNY-associated autoimmune disease is notpresent at this time, but is not definitive. If thereis high clinical suspicion for Sjogren's syndrome,testing for anti-SS-A/Ro antibody should be considered.Anti-Ani-1 antibody should be considered for clinicallysuspected inflammatory myopathies.AC-0: NegativeInternational Consensus on JONNY Patterns(https://doi.org/10.1515/fucu-2377-2146)For additional information, please refer tohttp://education.[employer]faq/UCI452(This link is being provided for informational/educational purposes only.)THIS TEST WAS PERFORMED AT:[facility] [address] [phone] FREITAS MD [facility]ONNY Titer [facility] J[facility]NY Pattern [facility] JONNY TITER 2 (REF LAB) [facility] JONNY Pattern 2 [facility] JONNY TITER 3 [facility] JONNY PATTERN 3 [facility] Blood Venous blood specimen / Unknown 06/30/2024 11:38 AM EDT 06/30/2024 2:07 PM EDT Breanne Fermin MD LAB BLOOD ORDERABLES Final Re sult Performing Organization Address [facility] Co de Phone Number [facility] [address] [place] [phone] * Hepatic Function Panel (06/30/2024 11:38 AM EDT) Bilirubin, Total 0.2 0.0 - 1.0 mg/dL [facility] Bilirubin, Direct <0.2 0.0 - 0.5 mg/dL [facility] Aspartate Amino Transferase 26 5 - 31 U/L [facility] Alanine Aminotransferase 19 0 - 31 U/L [facility] Total Protein 7.5 6.5 - 8.0 g/dL [facility] Albumin Level 4.1 3.5 - 5.0 g/dL [facility] Alkaline Phosphatase 98 39 - 117 U/L [facility] Blood Venous blood specimen / Unknown 06/30/2024 11:38 AM EDT 06/30/2024 2:07 PM EDT Breanne Fermin MD LAB BLOOD ORDERABLES Final Re sult Performing Organization Address [facility] Co de Phone Number [facility] [address] [place] [phone] * (ABNORMAL) POCT HGB A1C (06/30/2024 11:31 [...] Media Lot # [id number] Lot# Expiration Date 425 Blood Capillary blood specimen / Unknown 06/30/2024 11:30 AM EDT Breanne Fermin MD POINT OF CARE TEST ENTER/EDIT ORDERABLES Final Result * (ABNORMAL) Bacterial Vaginosis (06/17/2024 11:00 AM EDT) TRICHOMONAS VAGINALIS DETECTION BY PCR NOT DETECTED Not Detect [facility] BACTERIAL VAGINOSIS DETECTION BY PCR POSITIVE(A) Negative [facility] Comment:The BV organism targ ets [...] GROUP DETECTION BY PCR DETECTED(A) Not Detect [facility] Kristel glab krusei PCR NOT DETECTED Not Detect [facility] 06/17/2024 11:0 0 AM EDT 06/17/2024 4:26 PM EDT us Generic External Data Provider LAB MICROBIOLOGY - GENERAL ORDERABLES Final Result [facility] [address] [place] [phone] [phone] * (ABNORMAL) Chlamydia/N. Gonorrhoeae RNA, TMA, Urogenitial (06/17/2024 11:00 AM EDT) CT PCR DETECTED(A) Not Detect. [facility] Comment:Detected results may be observed [...] the ordering clinician orclinical facility to the [facility] required by state law. NG PCR NOT DETECTED Not Detect. [facility] Comment:A not detected test result [...] AM EDT 06/17/2024 4:26 PM EDT Narrative [facility] - 06/17/2024 8:48 PM EDT Vaginal us Generic External Data Provider LAB MICROBIOLOGY - GENERAL ORDERABLES Final Result Performing Organization Address [facility]/ZIP Co de Phone Number [facility] [address] [place] [phone] * Hepatitis C Antibody with Reflex to HCV, RNA, Quantitative, Real-Time PCR (08/29/2023 3:00 PM EDT) Hepatitis C Antibody Nonreactive Nonreactive [facility] Comment:Antibodies to HCV no t detected; does not exclude early acuteHCV infection. Blood Venous blood specimen / Unknown 08/29/2023 3:00 PM EDT 08/29/2023 5:32 PM EDT us Breanen Fermin MD LAB BLOOD ORDERABLES Final Re sult Performing Organization Address [facility] Co de Phone Number [facility] [address] [place] [phone] * HIV-1/2 Antigen and Antibodies, Fourth Generation, with Reflexes (08/29/2023 3:00 PM EDT) HIV AB/AG Nonreactive Nonreactive [facility] Comment:HIV-1 p24 Ag and/or HIV-1/HIV-2 Ab not detected.A test result that is nonreactive does not exclude thepossibility of exposure to or infection with HIV-1 and/orHIV-2. Nonreactive results in this assay for individualswith prior exposure to HIV-1 and/or HIV-2 may be due toantigen and antibody levels that are below the limit ofdetection of this assay.The [employer] HIV Ag/Ab Combo assay result andsupplemental assay results should be interpreted inconjunction with the patient's clinical presentation,history and other laboratory results. If the results areinconsistent with clinical evidence, additional testing issuggested to confirm the result. Blood Venous blood specimen / Unknown 08/29/2023 3:00 PM EDT 08/29/2023 5:32 PM EDT us Breanne Fermin MD LAB BLOOD ORDERABLES Final Re sult [facility] [address] [facility] [place] [phone] * BI Mammogram Screening Tomosynthesis Bilateral (11/01/2022 10:40 AM EDT) Anatomical Region Laterality Modality Breast Bilateral Mammography 11/01/2022 10:4 0 AM EDT Narrative 11/18/2022 8:00 AM EDT ? [facility] ? [address] ?[place] [address] ? Mammography Report ? Signed ? Patient: Fung,Dolores L ?MR#: [id number] ?? [id number] ? : 1980 ?Acct:[id number] ? Age/Sex: 42 / F ?ADM Date: 11/01/22 ? Loc: HO.MAMMO ? Attending Lola Fermin MD ? Ordering Physician: Kamille Watkins CNFabrice ?Results: 2Beni ?? gn Findings ? Date of Service: 11/01/22 ?Follow Up: 1 Year From Orig ?? inal Mammogram ? Procedure(s): MM tomosynthesis screening BI ?? Accession Number(s): [id number] ? cc: Breanne Fermin MD; Kamille Watkins [...] 0756 ? DD/ 1040 ? TD/TT: ? Production Supervisor Off Shift: ? Procedure Note Lolita Palacios - 11/18/2022 [facility] [address] [place] [address] Dr. [place], [place] [address] Mammography Report Signed Patient: Dolores Fung R#: [id number] : 1980Acct:[id number] Age/Sex: 42 / FADM Date: 11/01/22 Loc: HO.MAMMO Attending Dr: Breanne Fermin MD Ordering Physician: Kamille WatkinsMResults: 2Beni gn Findings Date of Service: 11/01/22Follow Up: 1 Year From Orig ina Mammogram Procedure(s): MM tomosynthesis screening BI Accession Number(s): [id number] cc: Breanne Fermin MD; Kamille Watkins CNM [...] in OV> 11/18/22 0756 DD/ 1040 TD/TT: Production Supervisor Off Shift: [facility] External Provider IMG BI PROCEDURES Final Result * (ABNORMAL) Lipid Panel, Standard (04/18/2022 10:48 AM EST) Cholesterol, Total 155 <200 mg/dL [facility] [place] [facility] HDL Cholesterol 29(L) > OR = 50 mg/dL [facility] [place] [employer] Triglycerides 281(H) <150 mg/dL [facility] [place] [facility] Comment: If a non-fasting specimen was collected, consider repeat triglyceride testing on a fasting specimen if clinically indicated. Devin et al. J. of Clin. Lipidol. 2015;9:129-169. LDL Cholesterol 89 mg/dL (calc) [facility] [place] [facility] Comment: Reference range: <100 Desirable range <100 mg/dL for primary prevention; ?? <70 mg/dL for patients with CHD or diabetic patients with > or = 2 CHD risk factors. LDL-C is now calculated using the Estiven calculation, which is a validated novel method providing better accuracy than the Friedewald equation in the estimation of LDL-C. Bright SS et al. CATRINA. 2013;310(19): 0092-4127 (http://education.[employer]faq/CMK294) Chol/HDLC Ratio 5.3(H) <5.0 (calc) [facility] Non-HDL Cholesterol 126 <130 mg/dL (calc) [facility] [place] [facility] Comment: For patients with diabetes plus 1 major ASCVD risk factor, treating to a non-HDL-C goal of <100 mg/dL (LDL-C of <70 mg/dL) is considered a therapeutic option. Blood Venous blood specimen / Unknown 04/18/2022 10:48 AM EST 04/18/2022 10:49 AM EST Narrative [facility] - 04/19/2022 7:54 AM EST FASTING:YES FASTING: YES Breanne Fermin MD LAB BLOOD ORDERABLES Final Re sult [facility] [address] [facility], [facility], [place] [phone] [facility] [place] [facility] [address] [facility], ([address]) [place] [phone] * LIQUID-BASED PAP TEST (11/27/2021 12:00 AM EDT) Swab Historical Provider LAB CYTOLOGY ORDERABLES F inal Result from Last 3 Months or Most Recently Relevant to Health Maintenance [place] [address] [place] [address] C3 Care Teams Marketing Intelligence Analyst Relationship Specialty Start Date End Date Breanne Fermin MD [address] [place] [phone] PCP - General Internal Medicine 05/02/22
== END 2024-07-09 10:55 | disposition home or self-care (01) ==
LOC: HO.US 10:54
PROVIDERS: PCP Pediatrics; Visit Provider Pediatrics
DX: E04.1 Nontoxic single thyroid nodule (principal)
CPT/HCPCS: 76536

== ENCOUNTER → 2024-07-09 10:58 | Outpatient (BNV) | payer MEDICAID, SELFPAY | PROVIDERS: PCP Pediatrics; Visit Provider Radiology Diagnostic Radiology | DX: E04.2 Nontoxic multinodular goiter (principal) | CPT/HCPCS: 76536 ==

== ENCOUNTER 2024-09-11 16:11 | Outpatient (REF) | payer MEDICAID, SELFPAY ==
--- OUTSIDE RECORDS SUMMARY | 2024-09-11 16:13 | XMS_ITS | Clinical Summary ---
Author Organization 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 [employer] Truck Driver Name Role Phone Breanne Fermin MD Primary Care Provider Allergies No known active allergies Surgical History [...] 87 04/09/2024 9:51 AM EST Temperature 36.6 C (97.9 F) 04/09/2024 9:51 AM EST Respiratory Rate 18 04/09/2024 9:51 AM EST [...] Influencers of Health Screening 01/15/2022 COVID-19 Vaccine (1 - 2023-2 5 season) 2023 Depression Screening 02/19/2024 Diabetes: Annual Urine Albumin-Creatinine Ratio (uACR) 04/09/2024 Influenza Vaccine (#1) 2024 Diabetes: Blood Sugar Contro l Test (HGBA1C) 12/31/2024 06/30/2024, 08/29/2023 Diabetes: Annual GFR (Glomerular Filtration Rate) 04/09/2025 04/09/2024 Cholesterol Screening (Lipid [...] age to complete this topic Pneumococcal Vaccine: Pediatrics (0 to 5 Years) and At-Risk Patients (6 to 49 Years) Aged Out No longer eligible b ased on patient's age to complete this topic RSV Immunization Patients Under 20 months Aged Out No longer eligible b ased on patient's age to complete this topic Varicella Vaccines Aged Out No longer eligible based on patient's age to complete this topic Procedures Procedure Name Priority Date/Time Associated Diagnosis Comments BASIC METABOLIC PANEL STAT 04/09/2024 10:33 AM EST from Last 3 Months or Most Recently Relevant to Health Maintenance Results * (ABNORMAL) Basic metabolic panel (04/09/2024 10:33 AM EST) Sodium 139 133 - 145 mmol/L LAB CHEMISTRY METHOD 04/09/2024 11:36 AM [facility] Potassium 3.7 3.5 - 5.5 mmol/L LAB CHEMISTRY METHOD 04/09/2024 11:36 AM [facility] Chloride 107 96 - 110 mmol/L LAB CHEMISTRY METHOD 04/09/2024 11:36 AM [facility] CO2 25 21 - 32 mmol/L LAB CHEMISTRY METHOD 04/09/2024 11:36 AM [facility] Anion Gap 7 3 - 11 LAB CHEMISTRY METHOD 04/09/2024 11:36 AM [facility] Glucose 102(H) 70 - 100 mg/dL LAB CHEMISTRY METHOD 04/09/2024 11:36 AM [facility] BUN 5 5 - 25 mg/dL LAB CHEMISTRY METHOD 04/09/2024 11:36 AM [facility] Creatinine 0.52 0.50 - 1.10 mg/dL LAB CHEMISTRY METHOD 04/09/2024 11:36 AM [facility] eGFR 118 >=60 mL/min/1. 73m2 LAB CHEMISTRY METHOD 04/09/2024 11:36 AM [facility] Comment:Calculation based on the Chronic Kidney Disease Epidemiology Collaboration (CKD-EPI) equation refit without adjustment for race. BUN/Creatinine Ratio 9.6 LAB CHEMISTRY METHOD 04/09/2024 11:36 AM [facility] Calcium 9.6 8.5 - 10.5 mg/dL LAB CHEMISTRY METHOD 04/09/2024 11:36 AM [facility] Blood Venous blood specimen / Unknown Venipuncture / Unknown 04/09/2024 10:33 AM EST 04/09/2024 10:43 AM EST us Layton Ragland DO LAB BLOOD ORDERABLES Final Res ult [facility] [address] [place] [address], [place] [phone] from Last 3 Months or Most Recently Relevant to Health Maintenance Insurance MEDICAID - [place] Care Teams [employer] Driver Relationship Specialty Start Date End Date Breanne Fermin MD [address] [place] [id number] PCP - General Internal Medicine 06/16/24
--- OUTSIDE RECORDS SUMMARY | 2024-09-11 16:13 | XMS_ITS | Encounter Summary ---
Author Organization [employer] Address [address] [place] [address] [address] [place] [address] Care Team Providers Care Fishing Tool Operator Name Role Phone Breanne Fermin MD Primary Care Provider [phone] Encounter Details Date Type Department Care Team ([facility] st Contact Info) Description 06/16/2024 Orders Only [facility] [address] [place], [place] [phone] Provider, MD Yvette Social History Tobacco Use [...] 10:00 AM EDT Office Visit [facility] [address] [place], [place] [phone] Breanne Fermin MD [address] [place] [address] documented as of this encounter Procedures Procedure [...] documented as of this encounter Care Teams Fishing Tool Operator Relationship Specialty Start Date End Date Breanne Fermin MD [address] [place] [address] PCP - General Internal Medicine 05/02/22 documented as of this encounter
[2024-09-12 11:47] LABS: Bacterial Vaginosis PCR POSITIVE (Negative); Candida Group PCR DETECTED (Not Detect); Candida glab krusei PCR DETECTED (Not Detect); Trichomonas vaginalis PCR NOT DETECTED (Not Detect)
[2024-09-12 12:16] LABS: CT PCR NOT DETECTED (Not Detect.); NG PCR NOT DETECTED (Not Detect.)
== END 2024-09-11 16:12 | disposition home or self-care (01) ==
LOC: HO.HHCLNP 16:11
PROVIDERS: Visit Provider Internal Medicine
DX: N89.8 Other specified noninflammatory disorders of vagina (principal)
CPT/HCPCS: 81515; 87491; 87591

== ENCOUNTER 2025-01-05 11:43 | Outpatient (REF) | payer MEDICAID, SELFPAY ==
[2025-01-05 15:20] LABS: Magnesium 1.8 mg/dL (1.6-2.6)
[2025-01-05 15:46] LABS: Folate 9.1 ng/mL (> or = 4.0); Vitamin B12 301 pg/mL (200-900)
== END 2025-01-05 11:44 | disposition home or self-care (01) ==
LOC: HO.CHCLDS 11:43
PROVIDERS: Visit Provider Pediatrics
DX: E11.9 Type 2 diabetes mellitus without complications (principal); R29.898 Other symptoms and signs involving the musculoskeletal system
CPT/HCPCS: 36415; 82306; 82607; 82746; 83036; 83735

== ENCOUNTER 2025-01-26 08:11 | Outpatient (REF) | payer MEDICAID, SELFPAY ==
--- NOTE | 2025-01-26 08:14 | EMG_ITS ---
Chief complaint: Right hand weakness and tingling Referred by:?Breanne Fermin MD Procedure done: Right upper extremity NCS/EMG Right median and ulnar motor studies were obtained. Right median and ulnar mixed sensory, radial sensory, and median and lateral antecubital sensory studies were performed. EMG was tried but patient did not tolerate the whole study. Findings: Median motor latencies was moderately prolonged periods similar pattern was noted with median mixed study. Median amplitude at wrist stimulation was significantly less than at elbow and reverse pattern was noted with ulnar stimulation. Session: 1. [id number] right median neuropathy across carpal tunnel 2. Right Bright Mita anastomosis, a normal variant 3. EMG was limited and a radiculopathy could not be completely ruled out. [place] [id number] 1 extremity MTDD
== END 2025-01-26 08:12 | disposition home or self-care (01) ==
LOC: HO.NEURO 08:11
PROVIDERS: PCP Pediatrics; Visit Provider Pediatrics
DX: R29.898 Other symptoms and signs involving the musculoskeletal system (principal); R20.2 Paresthesia of skin
CPT/HCPCS: 95885; 95910

== ENCOUNTER → 2025-01-26 08:14 | Outpatient (BNV) | payer MEDICAID, SELFPAY | PROVIDERS: PCP Pediatrics; Visit Provider Psychiatry & Neurology Neurology | DX: G56.01 Carpal tunnel syndrome, right upper limb (principal) | CPT/HCPCS: 95885; 95910 ==